=== PATIENT | female | born 1965 | race Caucasian/White ===

== ENCOUNTER → 2021-04-14 12:13 | Outpatient (BNVA) | payer OTHER, SELFPAY | PROVIDERS: Family Provider Nurse Practitioner; PCP Nurse Practitioner Family; Visit Provider Emergency Medicine | DX: E86.0 Dehydration (principal); R09.02 Hypoxemia; U07.1 COVID-19; R11.0 Nausea; R50.9 Fever, unspecified; J18.9 Pneumonia, unspecified organism; J98.11 Atelectasis | CPT/HCPCS: 71046; 80048; 85025 ==

== ENCOUNTER 2021-04-14 15:37 | Inpatient (IN) | payer OTHER, SELFPAY ==
[2021-04-14] VITALS (7 sets, daily range): BP systolic 115–147; BP diastolic 64–78; PULSE 73–87; RESP 17–30; TEMP 36.6–39.4; O2SAT 86–93; BMI 34.6
--- NOTE | 2021-04-14 17:43 | ECG_ITS ---
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 Measurements Intervals [place] Rate: 79 P: 41 DE: 127 QRS: 38 QRSD: 88 T: 27 QT: 359 QTc: 414 Interpretive Statements SINUS RHYTHM LOW QRS VOLTAGE [QRS DEFLECTION < 0.5/1.0 mV IN LIMB/CHEST LEADS] No previous ECG available for comparison Electronically Signed On 04-16-2021 17:24:42 CDT by Reilly Byrne M.D. [id number]
--- NOTE | 2021-04-14 17:57 | PC.NURSE ---
PT JUST ARRIVED TO ED ROOM FROM COVID TRIAGE.
--- NOTE | 2021-04-14 18:14 | PC.NURSE ---
NOTIFIED DR. PELAYO OF PT O2 SAT OF 88% ON 3LNC AND INCREASED O2 SAT TO 90% WITH INCREASE OF OXYGEN TO 4LNC.
[2021-04-14 18:28] LABS: Hematocrit 35.8 % (37.0-47.0); Hemoglobin 11.8 g/dL (11.5-15.3); Lymphocytes # 0.8 10^3/uL (0.8-4.8); Lymphocytes % 25.4 %; Mean Corpuscular Hemoglobin 29.5 pg (28.0-34.0); Mean Corpuscular Volume 89.5 fL (81-99); Monocytes # 0.2 10^3/uL (0.2-0.9); Monocytes % 4.8 %; Neutrophils # 2.18 10^3/uL (1.8-7.7); Neutrophils % 69.2 %; Nucleated Red Blood Cells % 0 %; Platelet Count 113 10^3/cmm (130-400); White Blood Count 3.2 10^3/uL (4.0-10.0)
[2021-04-14 18:38] LABS: Blood Gas Operator Identificat AMH; Blood Gas Sample Type Arterial; Oxygen Device NC
[2021-04-14 18:56] LABS: D Dimer 2.48 ug/mIFEU (0-0.59)
[2021-04-14] MEDS: remdesivir 200 MG in sodium chloride 0.9% (100 ml) 100 ML 100 MG IV (18:57)
[2021-04-14 19:00] LABS: ABG PH Result 7.43 (7.35-7.45); Arterial Blood Gas Hematocrit 37.6 % (37-47); Base Excess ABG -6.2 mmol/L (-2.0-2.0); Blood Gas Allen Test Pos; Blood Gas Sample Site Radial, right; HCO3 ABG 16.6 mmol/L (22-26); PO2 ABG 57.2 mmHg (80.0-100.0)
[2021-04-14 19:02] LABS: Lactic Sepsis W/Reflex 0.8 mmol/L (0.5-2.2); Troponin(5th) Baseline 205 ng/L (0-10)
[2021-04-14 19:03] LABS: Slide Review Slide Review Perform
[2021-04-14 19:10] LABS: NT Pro B Type Natriuretic Pept 551 pg/mL (0-125); Procalcitonin 0.52 ng/mL (0-0.5)
[2021-04-14 19:12] LABS: Influenza A by IFA Negative (Negative); Influenza B by IFA Negative (Negative)
--- NOTE | 2021-04-14 19:15 | PC.NURSE ---
reports received. Pt requesting that son be updated. This nurse attempted to locate and call with no contact at this time.
[2021-04-14 19:23] LABS: Alanine Aminotransferase 50 U/L (0-33); Albumin Level 3.3 g/dL (3.5-5.2); Alkaline Phosphatase 40 IU/L (35-105); Anion Gap 19.5 (5-19); Aspartate Amino Transferase 100 U/L (0-32); Blood Urea Nitrogen 20 mg/dL (6-20); C Reactive Protein 51.3 mg/L (0.0-4.9); Calcium 7.5 mg/dL (8.5-10.5); Carbon Dioxide 14 mmol/L (22-29); Chloride 105 mmol/L (98-107); Globulin 2.9 g/dL (1.3-4.6); Glomerular Filtration Rate 38.8 mL/min (90-130); Glucose 120 mg/dL (65-115); Osmolality Calculated 282 mOsm/kg (285-295); Potassium 4.5 mmol/L (3.5-5.1); Sodium 134 mmol/L (136-145); Total Bilirubin 0.4 mg/dL (0.15-1.2); Total Protein 6.2 g/dL (6.6-8.7)
[2021-04-14 19:36] LABS: Creatine Phosphokinase 2793 U/L (26-192)
--- NOTE | 2021-04-14 20:04 | ED_ITS ---
HPI - COVID General: Chief Complaint: COVID symptoms Stated Complaint: COVID(+) AT [facility]//SOB Time Seen by Provider: 04/14/21 17:49 Source: patient Mode of arrival: ambulatory Limitations: no limitations Triage information: Has fever, cough or shortness of breath . Exposure to COVID + person last 14 days History of Present Illness: HPI Narrative: Symptoms started 9 days ago, got tested 8 days ago and tested positive for COVID-19. She has been gradually getting weaker and having increasing shortness of breath. She went to her primary care provider's office today and notes that she was hypoxic on she may have had pneumonia on chest x-ray so she was sent down to the emergency department to be evaluated. She complains of significant difficulty breathing, she appears to be working to breathe while talking. She has a fever, generalized body aches and feels really weak. COVID Results: No Data to Display Review of Systems General: Reports: 10 or more systems reviewed and unremarkable except in HPI and below [facility] ED PFSH: Medical History (Reviewed 04/14/21 @ 22:30 by Graciela Minor MD, [facility] [place]) Community acquired pneumonia, bilateral COVID-19 Social History (Reviewed 04/14/21 @ 22:30 by Graciela Minor MD, [facility] [place]) Smoking and tobacco status: never smoked Alcohol intake: never Female Reproductive History: Spontaneous abortions: No Physical Exam Const: COMMON NORMALS: no acute distress, average body habitus, patient oriented x3, no limitations, healthy appearing, alert and well nourished HENMT: COMMON NORMALS: normocephalic, atraumatic and moist oral mucous membranes HEAD & SCALP: normocephalic and atraumatic Neck/C-Spine: COMMON NORMALS: no meningeal signs and no JVD Resp: COMMON NORMALS: normal respiratory effort, No retractions, No use of accessory muscles and percussion normal EFFORT & INSPECTION: Yes labored AUSCULTATION: rales PERCUSSION: percussion normal Cardio: COMMON NORMALS: no JVD, regular rate, regular rhythm, S1 normal heart sound present, S2 normal heart sound present, No gallops present (Cardio), No clicks present (Cardio), No murmurs present (Cardio), No rub (Cardio) and Peripheral pulses 2+ throughout RATE: regular rate RHYTHM: regular rhythm HEART SOUNDS: S1 normal heart sound present and S2 normal heart sound present PERIPHERAL PULSES: Peripheral pulses 2+ throughout GI: COMMON NORMALS: Normal to inspection, nondistended, normoactive bowel sounds present, Soft to palpation, non-tender, No hepatosplenomegaly present, no masses and no bruits PALPATION: Yes Soft to palpation and Yes No hepatosplenomegaly present Extremity: COMMON NORMALS: normal to inspection, full ROM, capillary refill normal, no calf tenderness and no pedal edema Neuro: COMMON NORMALS: patient oriented x3 SENSORIUM/ORIENTATION: Yes alert MENINGEAL SIGNS: Yes no meningeal signs Skin: COMMON NORMALS: no rashes or lesions noted, no wounds, turgor normal, no jaundice, no petechiae and no mottling GENERAL SKIN EXAM: no rashes or lesions noted and turgor normal Course Consultations: Consultation #1: Discussed the patient with Dr. Banks, hospitalist and she kindly accepted the patient to her service. Time: 21:55 Vital Signs: Vital signs: Vital Signs Temperature 103 F H 04/14/21 16:27 Pulse Rate 87 04/14/21 21:48 Respiratory Rate 18 04/14/21 21:48 Blood Pressure 115/73 04/14/21 21:48 Pulse Oximetry 92 04/14/21 21:48 MDM - COVID MDM Narrative: Medical decision making narrative: 55-year-old female patient who presents to the emergency department with worsening shortness of breath, generalized body aches, fever. She was diagnosed with COVID-19 8 days ago. On evaluation in the emergency department she was hypoxic with oxygen saturation in the 80s and required oxygen supplementation. Lab work shows she has a significantly elevated baseline troponin but her 2-hour delta is flat. She also has a significantly elevated creatinine kinase. She has elevated liver enzymes. Because she is hypoxic and with troponin elevation she has been admitted to the intensive care unit for further evaluation and management. She was started on remdesivir in the emergency department also given a dose of intravenous dexamethasone. Medical Records: Attestation: I reviewed the patient's medical records. Lab Data: Attestation: I reviewed the patient's lab results. Labs: Lab Results 04/14/21 04/14/21 04/14/21 Range/Units 18:14 18:14 18:14 WBC 3.2 L (4.0-10.0) 10^3/ uL RBC 4.00 L (4.1-5.3) 10^6/u L Hgb 11.8 (11.5-15.3) g/dL Hct 35.8 L (37.0-47.0) % MCV 89.5 (81-99) fL MCH 29.5 (28.0-34.0) pg MCHC 33.0 (30.0-36.0) g/dL RDW 13.0 (12.1-15.1) % Plt Count 113 L (130-400) 10^3/c mm MPV 11.0 H (7.4-10.4) fL Neut % (Auto) 69.2 % Lymph % (Auto) 25.4 % [place] % (Auto) 4.8 % Eos % (Auto) 0.0 % Baso % (Auto) 0.0 % Neut # (Auto) 2.18 (1.8-7.7) 10^3/u L Lymph # (Auto) 0.8 (0.8-4.8) 10^3/u L [place] # (Auto) 0.2 (0.2-0.9) 10^3/u L Eos # (Auto) 0.0 (0.0-0.8) 10^3/u L Baso # (Auto) 0.0 (0.0-0.1) 10^3/u L Nucleated RBC % (a uto) 0 % Nucleated RBCs # 0.0 /100WBC D-Dimer 2.48 H (0-0.59) ug/mIFE U Specimen Type Sample Site ABG pH (7.35-7.45) ABG pCO2 (35-45) mmHg ABG pO2 (80.0-100.0) mmH g ABG HCO3 (22-26) mmol/L ABG Base Excess (-2.0-2.0) mmol/ L Jose Test Hematocrit (37-47) % O2 Delivery Device O2 Liters/Min % FiO2 % Automation Lead ID Sodium 134 L (136-145) mmol/L Potassium 4.5 (3.5-5.1) mmol/L Chloride 105 (98-107) mmol/L Carbon Dioxide 14 L (22-29) mmol/L Anion Gap 19.5 H (5-19) BUN 20 (6-20) mg/dL Creatinine 1.4 H (0.5-0.9) mg/dL GFR Calculation 38.8 L (90-130) mL/min Glucose 120 H (65-115) mg/dL Calculated Osmolal ity 282 L (285-295) mOsm/k g Lactic Acid (0.5-2.2) mmol/L Calcium 7.5 L (8.5-10.5) mg/dL Total Bilirubin 0.4 (0.15-1.2) mg/dL AST 100 H (0-32) U/L ALT 50 H (0-33) U/L Alkaline Phosphata se 40 (35-105) IU/L Creatine Kinase 2793 H* (26-192) U/L Troponin T Baselin e (0-10) ng/L Troponin T 120 Min ammy (0-10) ng/L Delta Troponin T (0-10) ABS# C-Reactive Protein 51.3 H (0.0-4.9) mg/L NT-Pro-B Natriuret Pep 551 H (0-125) pg/mL Total Protein 6.2 L (6.6-8.7) g/dL Albumin 3.3 L (3.5-5.2) g/dL Globulin 2.9 (1.3-4.6) g/dL Procalcitonin 0.52 H (0-0.5) ng/mL Influenza Type A A g (Negative) Influenza Type B A g (Negative) 04/14/21 04/14/21 04/14/21 Range/Units 18:14 18:14 18:27 WBC (4.0-10.0) 10^3/ uL RBC (4.1-5.3) 10^6/u L Hgb (11.5-15.3) g/dL Hct (37.0-47.0) % MCV (81-99) fL MCH (28.0-34.0) pg MCHC (30.0-36.0) g/dL RDW (12.1-15.1) % Plt Count (130-400) 10^3/c mm MPV (7.4-10.4) fL Neut % (Auto) % Lymph % (Auto) % [place] % (Auto) % Eos % (Auto) % Baso % (Auto) % Neut # (Auto) (1.8-7.7) 10^3/u L Lymph # (Auto) (0.8-4.8) 10^3/u L [place] # (Auto) (0.2-0.9) 10^3/u L Eos # (Auto) (0.0-0.8) 10^3/u L Baso # (Auto) (0.0-0.1) 10^3/u L Nucleated RBC % (a uto) % Nucleated RBCs # /100WBC D-Dimer (0-0.59) ug/mIFE U Specimen Type Arterial Sample Site Radial, right ABG pH 7.43 (7.35-7.45) ABG pCO2 25.0 L (35-45) mmHg ABG pO2 57.2 L (80.0-100.0) mmH g ABG HCO3 16.6 L (22-26) mmol/L ABG Base Excess -6.2 L (-2.0-2.0) mmol/ L Jose Test Pos Hematocrit 37.6 (37-47) % O2 Delivery Device Nc O2 Liters/Min 4.0 % FiO2 36.0 % Automation Lead ID Amh Sodium (136-145) mmol/L Potassium (3.5-5.1) mmol/L Chloride (98-107) mmol/L Carbon Dioxide (22-29) mmol/L Anion Gap (5-19) BUN (6-20) mg/dL Creatinine (0.5-0.9) mg/dL GFR Calculation (90-130) mL/min Glucose (65-115) mg/dL Calculated Osmolal ity (285-295) mOsm/k g Lactic Acid 0.8 (0.5-2.2) mmol/L Calcium (8.5-10.5) mg/dL Total Bilirubin (0.15-1.2) mg/dL AST (0-32) U/L ALT (0-33) U/L Alkaline Phosphata se (35-105) IU/L Creatine Kinase (26-192) U/L Troponin T Baselin e 205 H* (0-10) ng/L Troponin T 120 Min ammy (0-10) ng/L Delta Troponin T (0-10) ABS# C-Reactive Protein (0.0-4.9) mg/L NT-Pro-B Natriuret Pep (0-125) pg/mL Total Protein (6.6-8.7) g/dL Albumin (3.5-5.2) g/dL Globulin (1.3-4.6) g/dL Procalcitonin (0-0.5) ng/mL Influenza Type A A g (Negative) Influenza Type B A g (Negative) 04/14/21 04/14/21 Range/Units 18:35 20:15 WBC (4.0-10.0) 10^3/ uL RBC (4.1-5.3) 10^6/u L Hgb (11.5-15.3) g/dL Hct (37.0-47.0) % MCV (81-99) fL MCH (28.0-34.0) pg MCHC (30.0-36.0) g/dL RDW (12.1-15.1) % Plt Count (130-400) 10^3/c mm MPV (7.4-10.4) fL Neut % (Auto) % Lymph % (Auto) % [place] % (Auto) % Eos % (Auto) % Baso % (Auto) % Neut # (Auto) (1.8-7.7) 10^3/u L Lymph # (Auto) (0.8-4.8) 10^3/u L [place] # (Auto) (0.2-0.9) 10^3/u L Eos # (Auto) (0.0-0.8) 10^3/u L Baso # (Auto) (0.0-0.1) 10^3/u L Nucleated RBC % (a uto) % Nucleated RBCs # /100WBC D-Dimer (0-0.59) ug/mIFE U Specimen Type Sample Site ABG pH (7.35-7.45) ABG pCO2 (35-45) mmHg ABG pO2 (80.0-100.0) mmH g ABG HCO3 (22-26) mmol/L ABG Base Excess (-2.0-2.0) mmol/ L Jose Test Hematocrit (37-47) % O2 Delivery Device O2 Liters/Min % FiO2 % Automation Lead ID Sodium (136-145) mmol/L Potassium (3.5-5.1) mmol/L Chloride (98-107) mmol/L Carbon Dioxide (22-29) mmol/L Anion Gap (5-19) BUN (6-20) mg/dL Creatinine (0.5-0.9) mg/dL GFR Calculation (90-130) mL/min Glucose (65-115) mg/dL Calculated Osmolal ity (285-295) mOsm/k g Lactic Acid (0.5-2.2) mmol/L Calcium (8.5-10.5) mg/dL Total Bilirubin (0.15-1.2) mg/dL AST (0-32) U/L ALT (0-33) U/L Alkaline Phosphata se (35-105) IU/L Creatine Kinase (26-192) U/L Troponin T Baselin e (0-10) ng/L Troponin T 120 Min ammy 200.6 H (0-10) ng/L Delta Troponin T -4.4 L (0-10) ABS# C-Reactive Protein (0.0-4.9) mg/L NT-Pro-B Natriuret Pep (0-125) pg/mL Total Protein (6.6-8.7) g/dL Albumin (3.5-5.2) g/dL Globulin (1.3-4.6) g/dL Procalcitonin (0-0.5) ng/mL Influenza Type A A g Negative (Negative) Influenza Type B A g Negative (Negative) Imaging Data: CTA Chest: Attestation: I personally reviewed and interpreted this imaging study as follows: Radiologist's impression: [address] [id number] Scan ReportSigned Patient: Debbie Aparicio #: [id number]: 1965Acct#:[id number]/Sex: 55 / FADM Date: 04/14/21Loc: ERRoom/Bed:Attending Dr: Ordering Provider/Ordering MD: Graciela Minor MD, [facility] [place] Date of Service: 04/14/21 Procedure(s): CT angio chest PE protcl [id number] Accession Number(s): [id number] Report Number: [id number] PROCEDURE INFORMATION: Exam: CTA Chest With Contrast Exam date and time: 04/14/2021 9:04 PM Age: 55 years old Clinical indication: Abnormal findings; Abnormal diagnostic tests; Elevated d-dimer; Cough and shortness of breath; Patient HX: Cough/sob/elevated ddimer/covid+. 20g in top of left hand with resistant flushing. Reduced injection rate. Best scan obtained. ; Additional info: Covid, hypoxia, elevated d-dimer TECHNIQUE: Imaging protocol: Computed tomographic angiography of the chest with contrast. 3D rendering (Not supervised by radiologist): MIP and/or 3D reconstructed images were created by the technologist. Total images: 836 Radiation optimization: All CT scans at this facility use at least one of these dose optimization techniques: automated exposure control; mA and/or kV adjustment per patient size (includes targeted exams where dose is matched to clinical indication); or iterative reconstruction. Contrast material: VISI 320; Contrast volume: 64 ml; Contrast route: INTRAVENOUS (IV); COMPARISON: CR (CHEST, ) 04/14/2021 8:41 PM RADIATION DOSE METRICS: Total DLP (mGy-cm): 887.26 FINDINGS: Pulmonary arteries: No visible evidence of pulmonary embolism/pulmonary arterial thrombus. Aorta: The thoracic aorta is nonaneurysmal. No visible intimal flap or dissection. Lungs: Bilateral, predominantly peripheral, patches of ground-glass interstitial lung disease opacification with early consolidation in the bilateral lower lobes consistent with active interstitial pneumonitis/pneumonia. Overall constellation of findings would be consistent with Covid-19 pneumonitis/pneumonia. Pleural spaces: Unremarkable. No pneumothorax. No pleural effusion. Heart: No cardiomegaly. No visible pericardial effusion. Mild coronary artery disease. Mediastinal space: Small hiatal hernia. Lymph nodes: Marginally prominent mediastinal and hilar lymph nodes most likely reactive in nature. Bones/joints: No visible active or acute osseous pathology. Mild degenerative disease and degenerative disc disease of the spine. Soft tissues: Unremarkable. CT/CT angio chest PE protcl [id number] IMPRESSION: 1. No visible evidence of pulmonary embolism/pulmonary arterial thrombus. 2. Bilateral pneumonitis/pneumonia consistent with Covid-19 pneumonitis/pneumonia. 3. Marginally prominent mediastinal hilar lymph nodes most likely reactive in nature. Radiation Dose CTDIVOL = (mGy): DLP = 887.26 (mGy-cm) Dictated By:Chari De Guzman By:Chari De Guzman Date/Time:04/14/212206DD/ 04 CXR: Attestation: I personally reviewed and interpreted this imaging study as follows: Radiologist's impression: [address] [id number] ReportSigned Patient: Debbie Aparicio #: [id number]: 1965Acct#:[id number]/Sex: 55 / FADM Date: 04/14/21Loc: ERRoom/Bed:Attending Dr: Ordering Provider/Ordering MD: Graciela Minor MD, [facility] [place] Date of Service: 04/14/21 Procedure(s): XR chest 1V portable [id number] Accession Number(s): [id number] Report Number: [id number] PROCEDURE INFORMATION: Exam: XR Chest Exam date and time: 04/14/2021 8:28 PM Age: 55 years old Clinical indication: Shortness of breath; Additional info: SOB, covid+ TECHNIQUE: Imaging protocol: XR of the chest. Views: 1 view. Total images: 1 COMPARISON: CR XR chest 2V* [id number] 04/14/2021 2:05 PM FINDINGS: Lungs: When compensation is made for change in technique no apparent significant interval change in the bilateral patchy ground-glass interstitial lung disease and early consolidated alveolar airspace disease of pneumonitis/pneumonia consistent with the diagnosis of Covid-19 pneumonitis/pneumonia. Pleural spaces: Unremarkable. No pleural effusion. No pneumothorax. Heart/Mediastinum: Cardiac structures in configuration stable. Bones/joints: Unremarkable. XR/XR chest 1V portable [id number] IMPRESSION: No significant interval change cardiopulmonary status radiographically. Dictated By:Chari De Guzman By:Chari De Guzman Date/Time:04/14/212157DD/ 55 EKG Data: EKG 1: Attestation: I personally reviewed and interpreted this EKG as follows: EKG interpretation date: 04/14/21 EKG interpretation time: 18:13 Prior EKG tracings: not available for review Interpretation: Sinus rhythm. Heart rate [address] changes. EKG 2: Attestation: I personally reviewed and interpreted this EKG as follows: EKG interpretation date: 04/14/21 EKG interpretation time: 21:38 Prior EKG tracings: available for review Interpretation: Sinus rhythm. Heart rate [address] changes. No significant change from earlier today. COVID Results: No Data to Display Critical Care Time Critical Care Time: Critical Care Time: Yes Total Critical Care Time: 60 Attestation: This case had a high probability of a clinically significant, sudden, or life threatening deterioration of this patient's condition which required my full and direct attention, intervention and personal management. Discharge Plan Discharge Patient Disposition: Admitted As Inpatient Clinical Impression: Pneumonia due to 2019 novel coronavirus, Rhabdomyolysis due to COVID-19, Elevated troponin Acute respiratory failure Qualifiers: Respiratory failure complication: hypoxia Qualified Code(s): J96.01 - Acute respiratory failure with hypoxia Condition: Stable Coding Level of Care Code ED Inspector Plating for Tate Barragan
--- NOTE | 2021-04-14 20:28 | XRR_ITS ---
PROCEDURE INFORMATION: Exam: XR Chest Exam date and time: 04/14/2021 8:28 PM Age: 55 years old Clinical indication: Shortness of breath; Additional info: SOB, covid+ TECHNIQUE: Imaging protocol: XR of the chest. Views: 1 view. Total images: 1 COMPARISON: CR XR chest 2V* [id number] 04/14/2021 2:05 PM FINDINGS: Lungs: When compensation is made for change in technique no apparent significant interval change in the bilateral patchy ground-glass interstitial lung disease and early consolidated alveolar airspace disease of pneumonitis/pneumonia consistent with the diagnosis of Covid-19 pneumonitis/pneumonia. Pleural spaces: Unremarkable. No pleural effusion. No pneumothorax. Heart/Mediastinum: Cardiac structures in configuration stable. Bones/joints: Unremarkable. XR/XR chest 1V portable [id number] IMPRESSION: No significant interval change cardiopulmonary status radiographically.
[2021-04-14 20:50] LABS: Troponin 5 2HR Delta -4.4 ABS# (0-10)
[2021-04-14 21:01] LABS: Troponin 5 2HR 200.6 ng/L (0-10)
--- NOTE | 2021-04-14 21:04 | CTR_ITS ---
PROCEDURE INFORMATION: Exam: CTA Chest With Contrast Exam date and time: 04/14/2021 9:04 PM Age: 55 years old Clinical indication: Abnormal findings; Abnormal diagnostic tests; Elevated d-dimer; Cough and shortness of breath; Patient HX: Cough/sob/elevated ddimer/covid+. 20g in top of left hand with resistant flushing. Reduced injection rate. Best scan obtained. ; Additional info: Covid, hypoxia, elevated d-dimer TECHNIQUE: Imaging protocol: Computed tomographic angiography of the chest with contrast. 3D rendering (Not supervised by radiologist): MIP and/or 3D reconstructed images were created by the technologist. Total images: 836 Radiation optimization: All CT scans at this facility use at least one of these dose optimization techniques: automated exposure control; mA and/or kV adjustment per patient size (includes targeted exams where dose is matched to clinical indication); or iterative reconstruction. Contrast material: VISI 320; Contrast volume: 64 ml; Contrast route: INTRAVENOUS (IV); COMPARISON: CR (CHEST, ) 04/14/2021 8:41 PM RADIATION DOSE METRICS: Total DLP (mGy-cm): 887.26 FINDINGS: Pulmonary arteries: No visible evidence of pulmonary embolism/pulmonary arterial thrombus. Aorta: The thoracic aorta is nonaneurysmal. No visible intimal flap or dissection. Lungs: Bilateral, predominantly peripheral, patches of ground-glass interstitial lung disease opacification with early consolidation in the bilateral lower lobes consistent with active interstitial pneumonitis/pneumonia. Overall constellation of findings would be consistent with Covid-19 pneumonitis/pneumonia. Pleural spaces: Unremarkable. No pneumothorax. No pleural effusion. Heart: No cardiomegaly. No visible pericardial effusion. Mild coronary artery disease. Mediastinal space: Small hiatal hernia. Lymph nodes: Marginally prominent mediastinal and hilar lymph nodes most likely reactive in nature. Bones/joints: No visible active or acute osseous pathology. Mild degenerative disease and degenerative disc disease of the spine. Soft tissues: Unremarkable. CT/CT angio chest PE protcl [id number] IMPRESSION: 1. No visible evidence of pulmonary embolism/pulmonary arterial thrombus. 2. Bilateral pneumonitis/pneumonia consistent with Covid-19 pneumonitis/pneumonia. 3. Marginally prominent mediastinal hilar lymph nodes most likely reactive in nature. Radiation Dose CTDIVOL = (mGy): DLP = 887.26 (mGy-cm)
[2021-04-14] MEDS: sodium chloride 0.9% 1,000 ML 999 ML IV (21:17)
[2021-04-14] MEDS: dexamethasone 4 mg/mL INJ 6 MG IVP (21:18)
[2021-04-14] MEDS: iodixanol 320 mg/mL 100mL Btl IV (21:33)
--- NOTE | 2021-04-14 21:43 | ECG_ITS ---
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 Measurements Intervals [place] Rate: 80 P: 53 KS: 129 QRS: 34 QRSD: 91 T: 42 QT: 373 QTc: 431 Interpretive Statements SINUS RHYTHM LOW QRS VOLTAGE IN PRECORDIAL LEADS [QRS DEFLECTION < 1.0 mV IN CHEST LEADS] Compared to ECG 04/14/2021 18:13:33 No significant changes Electronically Signed On 04-16-2021 17:24:25 CDT by Reilly Byrne M.D. [id number]
--- NOTE | 2021-04-14 23:30 | P.HP_ITS ---
Providers/Chief Complaint Admitting Physician: Minna John MD Chief Complaint: COVID(+) AT [facility]//SOB History of Present Illness Amarilys Aparicio is a 55 year old female who presented to the emergency room with chief complaint of increasing difficulty breathing in the setting of known Covid positivity. She began to have symptoms around April 06. She has some general malaise and cough, fever after a few days she decided to get tested and was found to be Covid positive. She was seen in the emergency room in [place] because of increasing difficulty breathing and malaise but discharged with pulse oximeter and recommended to have supportive care. Saturations at the time were okay. She began to have nausea and diarrhea, increasing fatigue, persistent fevers and increasing shortness of breath. She was seen at the clinic in [place] on April 13. Saturations were 90% on room air. She declined ER visit or consideration for admission. She received some IV fluids and Zofran in the office and was given prescription for antibiotics, Zofran and order was placed for oxygen therapy. She was unable to keep medications down and was seen again at the clinic on the . There she received Phenergan, Solu-Medrol and Rocephin IM as well as a breathing treatment. After discussion she did agree to come to the emergency room. Here she was evaluated. She was requiring up to 6 L of oxygen. She received IV fluids. Multiple laboratory studies were abnormal as will be described below. She was started on remdesivir and is being admitted for further care. She did not have Covid previously and did not receive Covid vaccination. Her is also Covid positive at the moment. Review of Systems Const: Reports: fever(s), chills, body aches, change in appetite, fatigue and malaise ENMT: Reports: dry mouth, nasal congestion and other (Denies loss of taste or smell); Denies: throat pain Card: Reports: chest pain (Primarily with coughing), palpitations, lightheadedness and dyspnea on exertion; Denies: edema or acrocyanosis Resp: Reports: dyspnea, productive cough, non-productive cough, wheezing and chest congestion; Denies: pain on inspiration or hemoptysis GI: Reports: abdominal pain, nausea, vomiting and diarrhea : Denies: difficulty voiding Musc: Reports: muscle cramps and muscle weakness; Denies: joint redness or joint warmth Skin/Breast: Denies: rash or sores Neuro: Reports: headache(s) and weakness in extremities (General rather than focal); Denies: numbness in extremities Psych: Denies: anxiety Medications/Allergies Home Medications Medication Instructions Recorded Confirmed Last Taken Type albuterol sulfate 90 mcg/actuation 2 puff INHALATION QID 04/13/21 04/14/21 Unknown History aerosol inhaler levothyroxine 175 mcg capsule 175 mcg PO DAILY 04/13/21 04/14/21 Unknown History miscellaneous medical supply See Rx Instructions MISCELLANEOUS 04/13/21 04/14/21 Unknown Rx .COMPLEX 30 Days #1 ea ondansetron HCl 4 mg tablet 4 mg PO Q8H PRN #30 tab 04/13/21 04/14/21 04/14/21 R x pantoprazole 40 mg tablet,delayed 40 mg PO DAILY 04/13/21 04/14/21 Unknown History release tizanidine 2 mg capsule 2 mg PO BID PRN 04/13/21 04/14/21 Unknown History ascorbic acid (vitamin C) [Vitamin 250 mg PO DAILY 04/14/21 04/14/21 Unknown History C] azithromycin See Rx Instructions .ROUTE .COMPLEX 04/14/21 04/14/21 04/14/21 History cholecalciferol (vitamin D3) 25 mcg PO DAILY 04/14/21 04/14/21 Unknown History [Vitamin D3] zinc 50 mg PO DAILY 04/14/21 04/14/21 Unknown History Allergies Allergy/AdvReac Type Severity Reaction Status Date / Time codeine Allergy Unknown UNKNOWN Verified 04/13/21 14:14 PFSH Acute PFSH: Medical History (Updated 04/15/21 @ 03:04 by Minna John MD) Acquired hypothyroidism COVID-19 (~04/2021) History of breast cancer Managed with lumpectomy, gets regular mammograms Surgical History (Updated 04/15/21 @ 02:42 by Minna John MD) History of D&C History of lumpectomy Family History (Updated 04/15/21 @ 02:43 by Minna John MD) Mother Breast cancer Social History (Updated 04/15/21 @ 02:43 by Minna John MD) Smoking and tobacco status: never smoked Alcohol intake: never Substance/Drug Use: never Household members: spouse Marital status: Female Reproductive History: Spontaneous abortions: Yes (1 miscarriage) Vitals/I&O/Wt Last Vital Signs Temp 98 F 04/14/21 23:02 Pulse 82 04/14/21 23:02 Resp 24 H 04/14/21 23:02 BP 124/64 04/14/21 23:02 Pulse Ox 93 04/14/21 23:02 04/14/21 04/14/21 04/15/21 14:59 22:59 06:59 Intake Total 100 / 100 Balance 100 / 100 Weight last 48 hrs Weight 94.347 kg Physical Exam Narrative: EXAM NARRATIVE: Constitutional: Awake and alert, cooperative, able answer questions HEENT: Normocephalic, atraumatic, pupils are equally reactive, conjunctive are slightly injected, nasopharynx is clear, oropharynx is dry mucous membranes Neck: Supple Respiratory: Scattered wheezes and crackles, no accessory muscle use noted, chest expansion is equal bilaterally Cardiovascular: Regular rhythm, no murmurs, no acrocyanosis Abdomen: Soft, mild tenderness in epigastric area, positive bowel sounds, nondistended Extremities: No pitting edema or acute synovitis Skin: Dry, no rashes or petechiae Neuro: Speech clear, face symmetric, moves all extremities, handgrip equal Psych: Normal affect Data : 04/14/21 18:14 04/14/21 18:14 Micro: Microbiology 04/14/21 20:15 Blood Culture - Preliminary Blood SPECIMEN COLLECTED 04/14/21 18:14 Blood Culture - Preliminary Blood SPECIMEN COLLECTED Other data: Laboratory Results WBC 3.2 10^3/uL (4.0-10.0) L 04/14/21 18:14 RBC 4.00 10^6/uL (4.1-5.3) L 04/14/21 18:14 Hgb 11.8 g/dL (11.5-15.3) 04/14/21 18:14 Hct 35.8 % (37.0-47.0) L 04/14/21 18:14 MCV 89.5 fL (81-99) D 04/14/21 18:14 MCH 29.5 pg (28.0-34.0) 04/14/21 18:14 MCHC 33.0 g/dL (30.0-36.0) D 04/14/21 18:14 RDW 13.0 % (12.1-15.1) 04/14/21 18:14 Plt Count 113 10^3/cmm (130-400) L 04/14/21 18:14 MPV 11.0 fL (7.4-10.4) H 04/14/21 18:14 Neut % (Auto) 69.2 % 04/14/21 18:14 Lymph % (Auto) 25.4 % 04/14/21 18:14 [place] % (Auto) 4.8 % 04/14/21 18:14 Eos % (Auto) 0.0 % 04/14/21 18:14 Baso % (Auto) 0.0 % 04/14/21 18:14 Neut # (Auto) 2.18 10^3/uL (1.8-7.7) 04/14/21 18:14 Lymph # (Auto) 0.8 10^3/uL (0.8-4.8) 04/14/21 18:14 [place] # (Auto) 0.2 10^3/uL (0.2-0.9) 04/14/21 18:14 Eos # (Auto) 0.0 10^3/uL (0.0-0.8) 04/14/21 18:14 Baso # (Auto) 0.0 10^3/uL (0.0-0.1) 04/14/21 18:14 Nucleated RBC % (auto) 0 % 04/14/21 18:14 Nucleated RBCs # 0.0 /100WBC 04/14/21 18:14 D-Dimer 2.48 ug/mIFEU (0-0.59) H 04/14/21 18:14 Specimen Type Arterial 04/14/21 18:27 Sample Site Radial, right 04/14/21 18:27 ABG pH 7.43 (7.35-7.45) 04/14/21 18:27 ABG pCO2 25.0 mmHg (35-45) L 04/14/21 18:27 ABG pO2 57.2 mmHg (80.0-100.0) L 04/14/21 18: ABG HCO3 16.6 mmol/L (22-26) L 04/14/21 18:27 ABG Base Excess -6.2 mmol/L (-2.0-2.0) L 04/14/21 18:27 Jose Test Pos 04/14/21 18:27 Hematocrit 37.6 % (37-47) 04/14/21 18:27 O2 Delivery Device Nc 04/14/21 18:27 O2 Liters/Min 4.0 % 04/14/21 18:27 FiO2 36.0 % 04/14/21 18:27 Furniture Mover Driver ID Amh 04/14/21 18:27 Sodium 134 mmol/L (136-145) L 04/14/21 18:14 Potassium 4.5 mmol/L (3.5-5.1) 04/14/21 18:14 Chloride 105 mmol/L (98-107) 04/14/21 18:14 Carbon Dioxide 14 mmol/L (22-29) L 04/14/21 18:14 Anion Gap 19.5 (5-19) H 04/14/21 18:14 BUN 20 mg/dL (6-20) 04/14/21 18:14 Creatinine 1.4 mg/dL (0.5-0.9) H 04/14/21 18:14 GFR Calculation 38.8 mL/min (90-130) L 04/14/21 18:14 Glucose 120 mg/dL (65-115) H 04/14/21 18:14 Calculated Osmolality 282 mOsm/kg (285-295) L 04/14/21 18:14 Lactic Acid 0.8 mmol/L (0.5-2.2) 04/14/21 18:14 Calcium 7.5 mg/dL (8.5-10.5) L 04/14/21 18:14 Total Bilirubin 0.4 mg/dL (0.15-1.2) 04/14/21 18:14 AST 100 U/L (0-32) H 04/14/21 18:14 ALT 50 U/L (0-33) H 04/14/21 18:14 Alkaline Phosphatase 40 IU/L (35-105) 04/14/21 18:14 Creatine Kinase 2793 U/L (26-192) H* 04/14/21 18:14 Troponin T Baseline 205 ng/L (0-10) H* 04/14/21 18:14 Troponin T 120 Minute 200.6 ng/L (0-10) H 04/14/21 20:15 Delta Troponin T -4.4 ABS# (0-10) L 04/14/21 20:15 Troponin T Hi Sens 6Hr 138.8 ng/L (0-10) H 04/15/21 00:18 Troponin T Hi Sens 6Hr Delta -66.2 ng/L (0-12) L 04/15/21 00:18 C-Reactive Protein 51.3 mg/L (0.0-4.9) H 04/14/21 18:14 NT-Pro-B Natriuret Pep 551 pg/mL (0-125) H 04/14/21 18:14 Total Protein 6.2 g/dL (6.6-8.7) L 04/14/21 18:14 Albumin 3.3 g/dL (3.5-5.2) L 04/14/21 18:14 Globulin 2.9 g/dL (1.3-4.6) 04/14/21 18:14 Procalcitonin 0.52 ng/mL (0-0.5) H 04/14/21 18:14 Influenza Type A Ag Negative (Negative) 04/14/21 18:35 Influenza Type B Ag Negative (Negative) 04/14/21 18:35 Impressions Chest X-Ray 04/14/21 20:28 IMPRESSION: No significant interval change cardiopulmonary status radiographically. Chest CTA 04/14/21 21:04 IMPRESSION: 1. No visible evidence of pulmonary embolism/pulmonary arterial thrombus. 2. Bilateral pneumonitis/pneumonia consistent with Covid-19 pneumonitis/pneumonia. 3. Marginally prominent mediastinal hilar lymph nodes most likely reactive in nature. Radiation Dose CTDIVOL = (mGy): DLP = 887.26 (mGy-cm) A&P Assessment and plan (1) Acute respiratory failure: Necessitating oxygen therapy. Secondary to Covid plus possible secondary bacterial infection. CTA was negative for PE. Status: Acute Qualifiers: Respiratory failure complication: hypoxia Qualified Code(s): J96.01 - Acute respiratory failure with hypoxia (2) Pneumonia due to 2019 novel coronavirus: Associated with leukopenia, thrombocytopenia, elevated D-dimer, hypoxemia, elevated troponin, elevated BNP, elevated CRP elevated procalcitonin suggestive of secondary bacterial infection although level is just outside of normal range, some elevation in transaminases, nausea, vomiting, dehydration, headache, mal aise, respiratory failure with hypoxemia. Status: Acute (3) Elevated troponin: Without significant delta, also with elevated BNP Status: Acute (4) Rhabdomyolysis due to COVID-19: Status: Acute Additional A&P Information Mild elevation in blood sugar, probably related to steroids received over the last couple of days, no history of diabetes Inpatient admission ICU care initially Continue oxygen therapy Remdesivir Dexamethasone Rocephin and azithromycin for coverage of possible secondary pneumonia Blood cultures were collected Send bacterial antigens Albuterol and Advair Lovenox and SCDs Low rate IV fluids with bicarbonate to alkalinize the urine Recheck CK Monitor urine output closely Serial laboratory studies Check urinalysis Will provide vitamin D, vitamin C, zinc Continue home levothyroxine PPI Monitor blood sugars while on steroids Supportive care otherwise Discussed with patient that she had multiple laboratory abnormalities consistent with severe Covid in addition to low oxygen levels. Reviewed current treatment plans and that there were other medications we might consider adding. Overall she looks better at the moment that I would expect with the laboratory abnormalities noted, though he is requiring 6 L of oxygen therapy Currently anticipate disposition home with family though will ultimately depend on clinical course Full code Attestations Medical Necessity Statement*: Anticipated stay greater than two midnights in this patient with Covid and multiple endorgan effects from it requiring oxygen therapy, close monitoring and management as indicated. 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
[2021-04-15] VITALS (53 sets, daily range): BP systolic 107–175; BP diastolic 69–104; PULSE 66–95; RESP 18–35; TEMP 35.7–37.2; O2SAT 88–99
[2021-04-15 01:01] LABS: Troponin 5 6HR 138.8 ng/L (0-10)
[2021-04-15] MEDS: enoxaparin 40 mg/0.4 mL Syringe SUBCUT (03:07)
[2021-04-15] MEDS: cefTRIAXone 1,000 MG in sodium chloride 0.9% (plus) 50 ML 100 MG IV (03:07)
[2021-04-15] MEDS: dexamethasone 4 mg/mL INJ 6 MG IVP (03:07)
[2021-04-15] MEDS: azithromycin 500 MG in sodium chloride 0.9% 250 ML 250 MG IV (03:08)
--- NOTE | 2021-04-15 03:36 | PC.NURSE ---
0238 Pt arrived per stretcher. Pt moved over to bed under her own power. Connected to ICU monitors. O2@6LNC. VSS. Assessment completed. Denies any pain. Lungs CTA, diminished in bases. Pt up to BSC with standby assist. Pt ambulated back to bed without assist. Tolerated fair. No desat noted. Will monitor.
[2021-04-15 03:54] LABS: Ferritin 549 ng/mL (15-150)
[2021-04-15 05:10] LABS: Hemoglobin 11.7 g/dL (11.5-15.3); Lymphocytes # 0.9 10^3/uL (0.8-4.8); Mean Corpuscular HGB Conc 32.5 g/dL (30.0-36.0); Mean Corpuscular Hemoglobin 29.4 pg (28.0-34.0); Mean Corpuscular Volume 90.5 fL (81-99); Mean Platelet Volume 11.2 fL (7.4-10.4); Monocytes # 0.2 10^3/uL (0.2-0.9); Monocytes % 7.6 %; Neutrophils # 1.65 10^3/uL (1.8-7.7); Nucleated Red Blood Cells % 0 %; Platelet Count 113 10^3/cmm (130-400); Red Blood Count 3.98 10^6/uL (4.1-5.3); Red Cell Distribution Width 12.9 % (12.1-15.1); White Blood Count 2.8 10^3/uL (4.0-10.0)
[2021-04-15 05:19] LABS: INR 1.29 (0.8-1.2)
[2021-04-15 05:20] LABS: Fibrinogen 457 mg/dL (174-498); Partial Thromboplastin Time 41.8 SECONDS (23.9-36.7)
[2021-04-15 05:33] LABS: Slide Review Slide Review Perform
[2021-04-15 05:37] LABS: Procalcitonin 0.43 ng/mL (0-0.5)
[2021-04-15 05:51] LABS: Alanine Aminotransferase 48 U/L (0-33); Albumin Level 2.9 g/dL (3.5-5.2); Alkaline Phosphatase 37 IU/L (35-105); Anion Gap 15.5 (5-19); Aspartate Amino Transferase 79 U/L (0-32); Blood Urea Nitrogen 21 mg/dL (6-20); C Reactive Protein 52.3 mg/L (0.0-4.9); Calcium 7.2 mg/dL (8.5-10.5); Carbon Dioxide 18 mmol/L (22-29); Chloride 107 mmol/L (98-107); Globulin 2.8 g/dL (1.3-4.6); Glomerular Filtration Rate 46.3 mL/min (90-130); Glucose 192 mg/dL (65-115); Osmolality Calculated 290 mOsm/kg (285-295); Phosphorus 2.4 mg/dL (2.5-4.5); Potassium 4.5 mmol/L (3.5-5.1); Sodium 136 mmol/L (136-145); Total Bilirubin 0.3 mg/dL (0.15-1.2); Total Protein 5.7 g/dL (6.6-8.7)
[2021-04-15 06:06] LABS: Creatine Phosphokinase 2245 U/L (26-192)
--- NOTE | 2021-04-15 06:28 | PC.NURSE ---
Pt resting quietly in bed, O2@6LNC. VSS. No s/s of SOB or pain.
[2021-04-15] MEDS: ascorbic acid 500 mg Tablet PO ×2 (08:33→18:11)
[2021-04-15] MEDS: zinc gluconate 50 mg Tablet PO (08:33)
[2021-04-15] MEDS: levothyroxine 175 mcg Tablet PO (08:33)
[2021-04-15] MEDS: pantoprazole DR 40 mg Tablet PO (08:33)
[2021-04-15] MEDS: albuterol 8 gm MDI 1 PUFF INHALATION ×3 (08:43→21:47)
[2021-04-15] MEDS: cholecalciferol (vitamin D3) 1,000 unit Tablet 2000 UNIT PO (10:00)
[2021-04-15 10:30] LABS: Specific Gravity, Urine 1.015 (1.005-1.030); Urine Appearance Clear (CLEAR); Urine Color Yellow (Yellow); pH Urine 5 (5-7)
[2021-04-15 10:31] LABS: Add Urine Culture? No; Add Urine Microscopic? YES; Bacteria Urine 1+ /hpf; Bilirubin Urine Neg (Negative); Blood Urine 3+ (Negative); Glucose Urine UA Norm (Normal); Ketones Urine Negative (Negative); Leukocyte Esterase Urine Negative (Negative); Mucus Urine TRACE /hpf; Nitrate Urine Negative (Negative); Protein Urine Trace (Negative); RBC Urine 0-4 /hpf (0-2); Urobilinogen Urine Norm (Negative)
--- NOTE | 2021-04-15 15:27 | PM.PN ---
Vitals/I&O/Wt Last Vital Signs Temp 96.3 F L 04/15/21 08:00 Pulse 88 04/15/21 15:00 Resp 28 H 04/15/21 15:00 BP 149/86 04/15/21 15:00 Pulse Ox 93 04/15/21 15:00 04/15/21 04/15/21 04/15/21 06:59 14:59 22:59 Intake Total 300 / 400 380 / 380 Output Total 200 / 200 400 / 400 Balance 100 / 200 -20 / -20 Weight last 48 hrs Weight 97.976 kg Weight 94.347 kg Data : 04/15/21 04:55 04/15/21 04:55 Micro: Microbiology 04/15/21 09:50 Bacterial Antigens - Final Urine,Clean Catch 04/14/21 20:15 Blood Culture - Preliminary Blood SPECIMEN COLLECTED 04/14/21 18:14 Blood Culture - Preliminary Blood SPECIMEN COLLECTED A&P Assessment and plan (1) Acute respiratory failure: Acute hypoxic respiratory failure secondary 2/2 Covid PNA with possible superadded bacterial PNA. Currently on COVID Protocol. C.T.A Chest:No P/E : Bilateral, predominantly peripheral, patches of ground-glass interstitial lung disease opacification with early consolidation in the bilateral lower lobes consistent with active interstitial pneumonitis/pneumonia. D-dimer : ESR: CRP: Ferittin: Fibrinigen: Procalcitonin : 0.52 Blood culture :GPC 10/10 Bottles Follow Repeat Blood Culture Urine culture Sputum culture MRSA PCR: Remdesivir 5 Day course Dexamethasone 6 mg I.V Daily Lovenox 40 mg sc q12 daily VANcomycin Ceftriaxone 1 gm q24 h Daily Advair inhalation Ascorbic acid po Zinc gluconate po Nebs Status: Acute Qualifiers: Respiratory failure complication: hypoxia Qualified Code(s): J96.01 - Acute respiratory failure with hypoxia (2) Pneumonia due to 2019 novel coronavirus: Associated with leukopenia, thrombocytopenia, elevated D-dimer, hypoxemia, elevated troponin, elevated BNP, elevated CRP elevated procalcitonin suggestive of secondary bacterial infection although level is just outside of normal range, some elevation in transaminases, nausea, vomiting, dehydration, headache, malaise, respiratory failure with hypoxemia. Status: Acute (3) JIMI (acute kidney injury): Likely Prerenal 2/2 Dehydration Baseline SCR :Unkown Admission SCR : 1.5 Monitor BMP Status: Acute (4) Rhabdomyolysis due to COVID-19: Status: Acute (5) Elevated troponin: Without significant delta, also with elevated BNP Status: Acute (6) Leukopenia: Status: Acute (7) Thrombocytopenia: Status: Acute Additional A&P Information Mild elevation in blood sugar, probably related to steroids received over the last couple of days, no history of diabetes Inpatient admission ICU care initially Continue oxygen therapy Remdesivir Dexamethasone Rocephin and azithromycin for coverage of possible secondary pneumonia Blood cultures were collected Send bacterial antigens Albuterol and Advair Lovenox and SCDs Low rate IV fluids with bicarbonate to alkalinize the urine Recheck CK Monitor urine output closely Serial laboratory studies Check urinalysis Will provide vitamin D, vitamin C, zinc Continue home levothyroxine PPI Monitor blood sugars while on steroids Supportive care otherwise Discussed with patient that she had multiple laboratory abnormalities consistent with severe Covid in addition to low oxygen levels. Reviewed current treatment plans and that there were other medications we might consider adding. Overall she looks better at the moment that I would expect with the laboratory abnormalities noted, though he is requiring 6 L of oxygen therapy Currently anticipate disposition home with family though will ultimately depend on clinical course Full code Attestations Medical Necessity Statement*: Patient needs to be in hospital for the management of COVID PNA . 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
--- NOTE | 2021-04-15 18:11 | PC.PHAR ---
Vancomycin is dosed at 750mg IVPB every 12 hours to produce a predicted trough level of 16.51 (population based pharmacokinetic analysis). A trough level has been ordered to be obtained before the fourth dose to confirm and adjust if needed.
[2021-04-15] MEDS: remdesivir 100 MG in sodium chloride 0.9% (100 ml) 100 ML IV (18:39)
[2021-04-15 18:44] LABS: Anion Gap 14.7 (5-19); Blood Urea Nitrogen 20 mg/dL (6-20); Calcium 7.9 mg/dL (8.5-10.5); Carbon Dioxide 18 mmol/L (22-29); Chloride 108 mmol/L (98-107); Glomerular Filtration Rate 51.2 mL/min (90-130); Glucose 225 mg/dL (65-115); Osmolality Calculated 294 mOsm/kg (285-295); Potassium 3.7 mmol/L (3.5-5.1); Sodium 137 mmol/L (136-145)
[2021-04-15 18:48] LABS: Creatine Phosphokinase 1722 U/L (26-192)
[2021-04-15] MEDS: vancomycin 750 MG in sodium chloride 0.9% 250 ML 250 MG IV (19:17)
[2021-04-15] MEDS: sodium chloride 0.9% 1,000 ML 75 ML IV (19:19)
[2021-04-16] VITALS (30 sets, daily range): BP systolic 123–159; BP diastolic 71–88; PULSE 63–101; RESP 18–33; TEMP 36.4–36.8; O2SAT 91–96
[2021-04-16] MEDS: azithromycin 500 MG in sodium chloride 0.9% 250 ML 250 MG IV (02:17)
[2021-04-16] MEDS: cefTRIAXone 1,000 MG in sodium chloride 0.9% (plus) 50 ML 100 MG IV (02:18)
[2021-04-16] MEDS: dexamethasone 4 mg/mL INJ 6 MG IVP (02:19)
[2021-04-16] MEDS: enoxaparin 40 mg/0.4 mL Syringe SUBCUT (02:19)
[2021-04-16 05:04] LABS: Basophils % 0.2 %; Hematocrit 35.7 % (37.0-47.0); Hemoglobin 11.8 g/dL (11.5-15.3); Lymphocytes # 0.9 10^3/uL (0.8-4.8); Lymphocytes % 16.3 %; Mean Corpuscular HGB Conc 33.1 g/dL (30.0-36.0); Mean Corpuscular Hemoglobin 29.9 pg (28.0-34.0); Mean Corpuscular Volume 90.6 fL (81-99); Mean Platelet Volume 11.6 fL (7.4-10.4); Monocytes # 0.5 10^3/uL (0.2-0.9); Monocytes % 8.8 %; Neutrophils # 4.14 10^3/uL (1.8-7.7); Nucleated Red Blood Cells % 0 %; Platelet Count 142 10^3/cmm (130-400); Red Blood Count 3.94 10^6/uL (4.1-5.3); White Blood Count 5.6 10^3/uL (4.0-10.0)
[2021-04-16 05:21] LABS: Albumin Level 2.6 g/dL (3.5-5.2); Alkaline Phosphatase 35 IU/L (35-105); Blood Urea Nitrogen 20 mg/dL (6-20); Calcium 7.3 mg/dL (8.5-10.5); Carbon Dioxide 18 mmol/L (22-29); Chloride 110 mmol/L (98-107); Globulin 2.8 g/dL (1.3-4.6); Glomerular Filtration Rate 57.1 mL/min (90-130); Glucose 238 mg/dL (65-115); Magnesium 2.2 mg/dL (1.7-2.3); Osmolality Calculated 300 mOsm/kg (285-295); Sodium 140 mmol/L (136-145); Total Bilirubin 0.3 mg/dL (0.15-1.2); Total Protein 5.4 g/dL (6.6-8.7)
[2021-04-16 05:38] LABS: Alanine Aminotransferase 44 U/L (0-33); Aspartate Amino Transferase 63 U/L (0-32)
[2021-04-16 05:39] LABS: Creatine Phosphokinase 1299 U/L (26-192)
--- NOTE | 2021-04-16 06:01 | PC.NURSE ---
Shift Summary Patient is alert and oriented, appropriate and cooperative, has tried to sleep all night but was up off and on. Patient has had no pain and only coughs with activity, patients son updated early in the night and she is hoping she gets to go home soon. Patient is still on 6LNC and should Convalesce out of isolation today after 10 days of quarantine.
--- NOTE | 2021-04-16 06:03 | PC.NURSE ---
Shift Summary Patient is alert and oriented on 6L nasal cannula, she is hoping she gets to go home soon. patient has been appropriate and cooperative all night, she has not complained of any pain and only coughs when she is sob due to activity. Patient has rested off and on throughout the night, talked to her son and gave him an update, its possible for her to transport to [facility] tomorrow which she is looking forward too.
[2021-04-16] MEDS: vancomycin 750 MG in sodium chloride 0.9% 250 ML 250 MG IV (06:13)
[2021-04-16 07:16] LABS: Slide Review Slide Review Perform
[2021-04-16] MEDS: levothyroxine 175 mcg Tablet PO (08:47)
[2021-04-16] MEDS: cholecalciferol (vitamin D3) 1,000 unit Tablet 2000 UNIT PO (08:47)
[2021-04-16] MEDS: zinc gluconate 50 mg Tablet PO (08:47)
[2021-04-16] MEDS: pantoprazole DR 40 mg Tablet PO (08:47)
[2021-04-16] MEDS: ascorbic acid 500 mg Tablet PO ×2 (08:47→17:59)
[2021-04-16] MEDS: sodium chloride 0.9% 1,000 ML 75 ML IV (08:48)
--- NOTE | 2021-04-16 11:42 | XRR_ITS ---
PROCEDURE INFORMATION: Exam: XR Chest Exam date and time: 04/16/2021 11:42 AM Age: 55 years old Clinical indication: Shortness of breath; Additional info: SOB TECHNIQUE: Imaging protocol: XR of the chest. Views: Frontal portable upright view of the chest. COMPARISON: CR (CHEST, ) 04/14/2021 8:41 PM FINDINGS: Tubes, catheters and devices: EKG leads are present overlying the chest. EKG leads are present overlying the chest. Lungs: Heterogeneous air space opacities in the bilateral mid-lower lung zones is slightly improved. The pulmonary vasculature is normal. Increased left basilar pulmonary subsegmental/partial atelectasis. Pleural spaces: No definite pleural effusion. No pneumothorax. Heart/Mediastinum: The heart is normal in size and contour. Mediastinum: Stable. Bones/joints: Stable. XR/XR chest 1V portable [id number] IMPRESSION: 1. Mildly improved bilateral pulmonary infiltrates. 2. Increased left basilar pulmonary subsegmental/partial atelectasis.
[2021-04-16] MEDS: FUROsemide 10 mg/mL SDV 2mL 20 MG IVP (13:09)
--- NOTE | 2021-04-16 16:07 | P.PN_ITS ---
Subjective Subjective: Interval history: Patient was seen and examined this morning. Continues to have generalized weakness, shortness of breath is mildly improved. She has remained afebrile, requiring 5 to 6 L oxygen to nasal cannula. Medications: Reviewed: Yes Vitals/I&O/Wt Last Vital Signs Temp 97.6 F 04/16/21 12:00 Pulse 89 04/16/21 14:00 Resp 33 H 04/16/21 14:00 BP 140/77 04/16/21 14:00 Pulse Ox 95 04/16/21 14:00 04/16/21 04/16/21 04/16/21 06:59 14:59 22:59 Intake Total 300 / 1150 1360 / 1360 100 / 1460 Output Total 500 / 900 300 / 300 Balance -200 / 250 1060 / 1060 100 / 1160 Weight last 48 hrs Weight 97.522 kg Weight 97.976 kg Weight 94.347 kg Physical Exam Const: COMMON NORMALS: patient oriented x3 HENMT: COMMON NORMALS: normocephalic and atraumatic HEAD & SCALP: normocephalic and atraumatic Resp: EFFORT & INSPECTION: Yes symmetric chest movement OTHER: B/L Crackles present in both lung hutchinson Cardio: COMMON NORMALS: regular rate, regular rhythm, S1 normal heart sound present, S2 normal heart sound present, No gallops present (Cardio), No murmurs present (Cardio), No rub (Cardio) and Peripheral pulses 2+ throughout RATE: regular rate RHYTHM: regular rhythm HEART SOUNDS: S1 normal heart sound present and S2 normal heart sound present PERIPHERAL PULSES: Peripheral pulses 2+ throughout GI: COMMON NORMALS: Normal to inspection, nondistended, normoactive bowel sounds present, Soft to palpation, non-tender, No hepatosplenomegaly present and no masses AUSCULTATION: Yes normoactive bowel sounds PALPATION: Yes Soft to palpation and Yes No hepatosplenomegaly present RECTAL EXAM: deferred Extremity: COMMON NORMALS: no clubbing, cyanosis or edema and no pedal edema Neuro: COMMON NORMALS: patient oriented x3 Data : 04/16/21 04:23 04/16/21 04:23 Micro: Microbiology 04/16/21 02:45 MRSA Culture - Final Nose 04/14/21 20:15 Blood Culture - Preliminary Blood Coagulase negativ staphylococc 04/15/21 18:10 Blood Culture - Preliminary Blood SPECIMEN COLLECTED 04/15/21 18:18 Blood Culture - Preliminary Blood SPECIMEN COLLECTED 04/14/21 18:14 Blood Culture - Preliminary Blood NEGATIVE TO DATE A&P Assessment and plan (1) Acute respiratory failure: Acute hypoxic respiratory failure secondary 2/2 Covid PNA with possible superadded bacterial PNA. Currently on COVID Protocol. C.T.A Chest:No P/E : Bilateral, predominantly peripheral, patches of ground- glass interstitial lung disease opacification with early consolidation in the bilateral lower lobes consistent with active interstitial pneumonitis/pneumonia. Xray Chest : Mildly improved bilateral pulmonary infiltrates. D-dimer : 2.48 ESR: CRP:51-->52 Ferittin:549 Fibrinigen:457 Procalcitonin : 0.52-->0.43 Blood culture :GPC 10/10 Bottles Follow Repeat Blood Culture: Urine culture Sputum culture MRSA PCR:Negative Remdesivir 5 Day course Dexamethasone 6 mg I.V Daily Lovenox 40 mg sc q12 daily VANcomycin Ceftriaxone 1 gm q24 h Daily S/P 1 Dose of Tocilizumab ( 04/16 ) Advair inhalation Ascorbic acid po Zinc gluconate po Nebs Lasix as needed Status: Acute Qualifiers: Respiratory failure complication: hypoxia Qualified Code(s): J96.01 - Acute respiratory failure with hypoxia (2) Pneumonia due to 2019 novel coronavirus: Associated with leukopenia, thrombocytopenia, elevated D-dimer, hypoxemia, elevated troponin, elevated BNP, elevated CRP elevated procalcitonin suggestive of secondary bacterial infection although level is just outside of normal range, some elevation in transaminases, nausea, vomiting, dehydration, headache, malaise, respiratory failure with hypoxemia. Status: Acute (3) JIMI (acute kidney injury): Likely Prerenal 2/2 Dehydration Baseline SCR :Unkown Admission SCR : 1.5 Current SCR : 1.0 Monitor BMP Status: Acute (4) Rhabdomyolysis due to COVID-19: Initially on IV hydration. CK has appropriately trended down: 1299. Will encourage oral hydration now. Status: Acute (5) Elevated troponin: Without significant delta, also with elevated BNP: Denies any chest pain. Continue telemetry Follow 2D echo: Status: Acute (6) Leukopenia: Status: Acute (7) Thrombocytopenia: Status: Acute Additional A&P Information Mild elevation in blood sugar, probably related to steroids received over the last couple of days, no history of diabetes Inpatient admission ICU care initially Continue oxygen therapy Remdesivir Dexamethasone Rocephin and azithromycin for coverage of possible secondary pneumonia Blood cultures were collected Send bacterial antigens Albuterol and Advair Lovenox and SCDs Low rate IV fluids with bicarbonate to alkalinize the urine Recheck CK Monitor urine output closely Serial laboratory studies Check urinalysis Will provide vitamin D, vitamin C, zinc Continue home levothyroxine PPI Monitor blood sugars while on steroids Supportive care otherwise Discussed with patient that she had multiple laboratory abnormalities consistent with severe Covid in addition to low oxygen levels. Reviewed current treatment plans and that there were other medications we might consider adding. Overall she looks better at the moment that I would expect with the laboratory abnormalities noted, though he is requiring 6 L of oxygen therapy Currently anticipate disposition home with family though will ultimately depend on clinical course Full code Attestations Medical Necessity Statement*: Patient needs to be in the hospital for management of respiratory failure secondary to Covid pneumonia. 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
[2021-04-16 17:51] LABS: Vancomycin Trough 10.4 ug/mL (10-15)
[2021-04-16] MEDS: vancomycin 1,500 MG/300 ML PIGGYBACK 200 MG IV (17:59)
[2021-04-16] MEDS: remdesivir 100 MG in sodium chloride 0.9% (100 ml) 100 ML IV (17:59)
[2021-04-17] VITALS (31 sets, daily range): BP systolic 118–176; BP diastolic 58–93; PULSE 62–96; RESP 18–37; TEMP 36.5–37.2; O2SAT 89–95
[2021-04-17] MEDS: enoxaparin 40 mg/0.4 mL Syringe SUBCUT (02:42)
[2021-04-17] MEDS: cefTRIAXone 1,000 MG in sodium chloride 0.9% (plus) 50 ML 100 MG IV (02:43)
[2021-04-17] MEDS: dexamethasone 4 mg/mL INJ 6 MG IVP (02:43)
[2021-04-17] MEDS: azithromycin 500 MG in sodium chloride 0.9% 250 ML 250 MG IV (02:43)
--- NOTE | 2021-04-17 05:52 | PC.NURSE ---
Shift Summary Patient alert and oriented, in room resting, watching a movie early in the night. Patient has SOB when she gets up to the bedside commode. Patient is concerned because her is now in the hospital for his CoVID symptoms. Patient has a frequent cough that is starting to become more consistent. Patient is appropriate and cooperative.
--- NOTE | 2021-04-17 06:00 | USCV_ITS ---
Amarilys Aparicio Age: 55 Gender: F : 1965 Exam Date: 04/17/2021 05:32 Ordering Phys: Brad Leiva MD Technologist: Marga Tello Exam Location: [facility] [place] Indication: COVID POSITIVE WITH SOB BP: 141 / 76 HR: 73 Rhythm: Sinus Technical Quality: Adequate MEASUREMENTS (Male / Female) Normal Values 2D ECHO LV Diastolic Diameter PLAX 3.6 cm 4.2 - 5.9 / 3.9 - 5.3 cm LV Systolic Diameter PLAX 2.6 cm LV Chamber Size 3.5 cm IVS Diastolic Thickness 0.9 cm 0.6 - 1.0 / 0.6 - 0.9 cm IVS Systolic Thickness 1.6 cm LVPW Diastolic Thickness 1.3 cm 0.6 - 1.0 / 0.6 - 0.9 cm LVPW Systolic Thickness 1.4 cm RV Chamber Size 3.0 cm LVOT Diameter 2.1 cm LV Ejection Fraction 2D Teich 53.5 % LV Ejection Fraction MOD 2C 62.4 % LV Ejection Fraction 2C AL 63.0 % LA Diameter 2.9 cm LA Width 3.9 cm LA Height 3.9 cm RA Width 3.3 cm RA Height 3.4 cm Aorta at Sinotubular Diameter 2.7 cm M-MODE LV Diastolic Diameter MM 4.3 cm 4.2 - 5.9 / 3.9 - 5.3 cm LV Systolic Diameter MM 2.5 cm LV Ejection Fraction MM Teich 73.2 % IVS Diastolic Thickness MM 0.8 cm 0.6 - 1.0 / 0.6 - 0.9 cm IVS Systolic Thickness MM 1.4 cm LVPW Diastolic Thickness MM 0.9 cm 0.6 - 1.0 / 0.6 - 0.9 cm LVPW Systolic Thickness MM 1.1 cm Aortic Annulus Diameter 2.9 cm LA Ao Ratio MM 1.2 MV E Point Septal Separation 0.4 cm DOPPLER AV Peak Velocity 121.0 cm/s LVOT Peak Velocity 99.0 cm/s AV Area Cont Eq vti 3.0 cm squared AV Area Cont Eq pk 2.8 cm squared MV Area PHT 3.4 cm squared Mitral E to A Ratio 1.2 MV E' Velocity 56.5 cm/s Mitral E to MV E' Ratio 8.7 Mitral E to LV E' Lateral Ratio 8.5 Mitral E to LV E' Septal Ratio 8.8 TR Peak Velocity 227.2 cm/s TR Peak Gradient 20.6 mmHg TR Mean Velocity 190.1 cm/s TR Mean Gradient 15.4 mmHg TR Velocity Time Integral 75.2 cm TV Peak E Velocity 75.0 cm/s Right Atrial Pressure 8.0 mmHg Pulmonary Artery Systolic Pressu 28.6 mmHg PV Peak Velocity 67.0 cm/s RV Acceleration Time 0.1 s RV Ejection Time 0.4 s RV AcT/ET 0.3 FINDINGS Left Ventricle Normal left ventricular size and systolic function, EF 56 %. No regional wall motion abnormalities. Right Ventricle The right ventricle is normal in size and function. Right Atrium The right atrium is normal in size. Left Atrium The left atrium is normal in size. Mitral Valve Mildly thickened mitral valve. Aortic Valve No gross abnormalities noted Tricuspid Valve Tricuspid valve not well visualized. Pulmonic Valve Trace pulmonary valve regurgitation. Pericardium Normal pericardium without effusion. Aorta Normal ascending aorta dimension. CONCLUSIONS Normal left ventricular size and systolic function, EF 56 %. No regional wall motion abnormalities. Mildly thickened mitral valve. Trace pulmonary valve regurgitation. There is no pericardial effusion. There are no intracardiac masses. No previous study is available for comparison. Dr Bhaskar De La Torre MD FACC (Electronically Signed) Final Date: 17 April 2021 09:20 S
[2021-04-17 06:18] LABS: Basophils % 0.2 %; Lymphocytes # 0.9 10^3/uL (0.8-4.8); Lymphocytes % 16.7 %; Mean Corpuscular HGB Conc 32.4 g/dL (30.0-36.0); Mean Corpuscular Hemoglobin 29.6 pg (28.0-34.0); Mean Corpuscular Volume 91.1 fL (81-99); Mean Platelet Volume 11.4 fL (7.4-10.4); Monocytes # 0.5 10^3/uL (0.2-0.9); Monocytes % 9.3 %; Neutrophils % 72.1 %; Nucleated Red Blood Cells % 0 %; Platelet Count 155 10^3/cmm (130-400); Red Blood Count 4.06 10^6/uL (4.1-5.3); White Blood Count 5.4 10^3/uL (4.0-10.0)
[2021-04-17 06:32] LABS: Alanine Aminotransferase 55 U/L (0-33); Albumin Level 2.8 g/dL (3.5-5.2); Alkaline Phosphatase 39 IU/L (35-105); Aspartate Amino Transferase 58 U/L (0-32); Blood Urea Nitrogen 17 mg/dL (6-20); Calcium 7.6 mg/dL (8.5-10.5); Carbon Dioxide 21 mmol/L (22-29); Chloride 109 mmol/L (98-107); Ferritin 450 ng/mL (15-150); Globulin 2.8 g/dL (1.3-4.6); Glomerular Filtration Rate 57.1 mL/min (90-130); Glucose 187 mg/dL (65-115); Osmolality Calculated 296 mOsm/kg (285-295); Sodium 140 mmol/L (136-145); Total Bilirubin 0.4 mg/dL (0.15-1.2); Total Protein 5.6 g/dL (6.6-8.7)
[2021-04-17 06:39] LABS: D Dimer 1.46 ug/mIFEU (0-0.59)
[2021-04-17 07:05] LABS: Creatine Phosphokinase 773 U/L (26-192)
[2021-04-17 07:06] LABS: Anion Gap 13.8 (5-19); Lactate Dehydrogenase 723 U/L (135-214); Potassium 3.8 mmol/L (3.5-5.1)
[2021-04-17 07:19] LABS: Slide Review Slide Review Perform
[2021-04-17 07:21] LABS: Erythrocyte Sedimentation Rate 30 mm/hr (0-15)
[2021-04-17] MEDS: ascorbic acid 500 mg Tablet PO ×2 (08:08→18:14)
[2021-04-17] MEDS: levothyroxine 175 mcg Tablet PO (08:08)
[2021-04-17] MEDS: pantoprazole DR 40 mg Tablet PO (08:08)
[2021-04-17] MEDS: zinc gluconate 50 mg Tablet PO (08:08)
[2021-04-17] MEDS: cholecalciferol (vitamin D3) 1,000 unit Tablet 2000 UNIT PO (08:08)
[2021-04-17] MEDS: albuterol 8 gm MDI 2 PUFF INHALATION (08:46)
--- NOTE | 2021-04-17 09:30 | PC.NURSE ---
This nurse was assisting patient to bedside commode when she stated that she felt very weak today. She also seemed to be more short of breath and complained that she was dizzy. Oxygen levels remain above 90% on 6L nasal cannula. Oxygen drops to 88% when transferring to bedside commode.
--- NOTE | 2021-04-17 09:45 | P.PN_ITS ---
Subjective Subjective: Interval history: Overnight, the patient is remain between 5 to 6 L of nasal cannula, with an O2 sat between 92 to 94%. She endorses dyspnea, dizziness and lightheadedness with movement. She denies chest pain. She endorses dysgeusia, but not anosmia. She complains of diarrhea and nausea, but denies any abdominal pain. Medications: Reviewed: Yes Vitals/I&O/Wt Last Vital Signs Temp 98.6 F 04/17/21 09:00 Pulse 90 04/17/21 09:00 Resp 29 H 04/17/21 09:00 BP 176/90 04/17/21 09:00 Pulse Ox 94 04/17/21 09:00 04/16/21 04/17/21 04/17/21 22:59 06:59 14:59 Intake Total 740 / 2100 1300 / 3400 120 / 120 Output Total 251 / 551 Balance 740 / 1800 1049 / 2849 120 / 120 Weight last 48 hrs Weight 96.615 kg Weight 97.522 kg Physical Exam Const: GENERAL APPEARANCE: cooperative and other (Uncomfortable); not comfortable ORIENTATION/CONSCIOUSNESS: Yes awake, Yes oriented to person, Yes oriented to place and Yes oriented to time HENMT: COMMON NORMALS: normocephalic, atraumatic, external ears normal, Normal external nose present, moist oral mucous membranes and oropharynx normal HEAD & SCALP: normocephalic and atraumatic FACE & SINUS: normal facial exam NOSE: Normal external nose present EXTERNAL EAR: Yes external ears normal THROAT: posterior oropharynx normal Eye: COMMON NORMALS: Equal, round and reactive pupils present and conjunctivae normal CONJUNCTIVA: Yes conjunctivae normal PUPIL: Yes Equal, round and reactive pupils present EOM: No EOM abnormal Neck/C-Spine: COMMON NORMALS: supple and Thyroid normal GENERAL: Yes trachea midline and No lymphadenopathy THYROID: Thyroid normal Resp: AUSCULTATION: crackles Laterality: bilateral (Mid to lower lung lobes), no rhonchi, no wheezes and diminished lung sounds bilateral throughout Cardio: COMMON NORMALS: regular rate and regular rhythm RATE: regular rate RHYTHM: regular rhythm HEART SOUNDS: no click, no gallops, no murmurs and no rubs GI: COMMON NORMALS: Soft to palpation and No hepatosplenomegaly present AUSCULTATION: Yes normoactive bowel sounds PALPATION: Yes Soft to palpation, No Tenderness to palpation present (GI), No Guarding due to palpation present (GI), No Rigid due to palpation and Yes No hepatosplenomegaly present Extremity: GENERAL: No clubbing, No cyanosis, No deformity and No edema Neuro: SENSORIUM/ORIENTATION: Yes oriented to person, Yes oriented to place and Yes oriented to time CRANIAL NERVES: Yes CN normal except as noted GAIT: Yes Unable to assess gait (Due to complaints of dizziness and lighthea dedness) SENSORY EXAM: Yes Normal double simultaneous stimulation for sensation Psych: COMMON NORMALS: Normal thought process present and speech normal ACTIVITY/MOTOR BEHAVIOR: Yes appropriate eye contact SPEECH: Yes normal speech MOOD & AFFECT: Yes Other affect and mood findings present (Her mood is appropriate to her situation.) THOUGHT PROCESS: Normal thought process present Skin: COMMON NORMALS: no rashes or lesions noted GENERAL SKIN EXAM: no rashes or lesions noted Data : 04/17/21 05:35 04/17/21 05:35 Micro: Microbiology 04/15/21 18:10 Blood Culture - Preliminary Blood NEGATIVE TO DATE 04/15/21 18:18 Blood Culture - Preliminary Blood NEGATIVE TO DATE 04/16/21 02:45 MRSA Culture - Final Nose 04/14/21 20:15 Blood Culture - Preliminary Blood Coagulase negativ staphylococc A&P Assessment and plan (1) Acute respiratory failure with hypoxia: Status: Acute (2) Pneumonia due to 2019 novel coronavirus: Status: Acute (3) Thrombocytopenia: Status: Acute (4) Leukopenia: Status: Acute (5) Rhabdomyolysis due to COVID-19: Status: Acute (6) Acquired hypothyroidism: Status: Acute (7) COVID-19: Status: Acute Ms. Amarilys Aparicio is a 55yo woman w/ hypothyroidism, history of L. breast cancer in ~2003/2004 s/p lumpectomy only, 04/14/2021 who was admitted on 04/14/2021 for acute hypoxic respiratory failure due to bilateral pneumonia deemed to be due to COVID-19 virus, an JIMI Cr of 1.5), and Rhabdomyolysis. The patient started experiencing symptoms around 04/06/2021, and got tested the next day and positive. She had an elevated D-dimer in the ED. A CTA was done and it ws negative for a PE, concerning for bilateral pneumonitis/pneumonia consistent wi th COVID-19 pneumonitis/pneumonia. Her initial Bcx was positive for coagulase- negative staph, in 1 set of BCx, but repeat BCx was negative on all sets. On presentation, she was also noted to have elevated CK, and mildly elevated Trop T. TTE was done that showed an LVEF of 56%, no wall motion abnormalities, and a mildly thickened mitral valve. #Acute Hypoxic Respiratory failure #Bilateral viral COVID-19 pneumonia #COVID-19 virus - Continue Remdesivir, Dexamethasone, albuterol MDI 4 puffs qid, Zinc, Vit D. Ordered ensure for her poor po intake - Continue to monitor inflammatory markers - She has had 3 days of Azithromycin - d/c. #Electrolyte abnormalities - Replace prn #JIMI - Improved. Continue to monitor renal fxn and strict Is & Os. # Elevated Trop T - Likely demand ischemia. TTE shows no overt abnormalities # Rhambdomyolysis - Continue to trend and encourage PO intake. # Metabolic acidosis # Leukopenia, THrombocyopenia - Due to COVID-19 virus # Diarrhea - F/u C. diff and enteric pathogen panel pcr. Likely due to COVID # GERD - Continue Pantoprazole #Hypothyroidism - Continue home meds # MRSA of the nares positive DVT ppx: lovenox GI ppx: Pantoprazole. Dispo: Since her O2 sat has not changed in the past 24hrs, will transfer to med- surg. Attestations Medical Necessity Statement*: Patient requires continued hospitalization due to Acute hypoxic respiratory failure requiring 5-6L of O2. 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
--- NOTE | 2021-04-17 12:01 | PC.NURSE ---
Call placed to contact center analyst yrn Aparicio [phone]. Care plan, medications, and status reviewed. Son had many questions. All questions answered. Teach back performed. Interestingly enough, patients is also admitted. Son requests when possible, parents are moved into the same room. Explained that at present time, due to acuity being different, we are unable to accommodate that request. But a their stay goes on, we will attempt to make this happen if possible. Son was very grateful. Denies further questions.
[2021-04-17] MEDS: vancomycin 1,500 MG/300 ML PIGGYBACK 200 MG IV (12:02)
[2021-04-17] MEDS: albuterol 8 gm MDI 4 PUFF INHALATION ×2 (14:22→20:20)
[2021-04-17] MEDS: remdesivir 100 MG in sodium chloride 0.9% (100 ml) 100 ML IV (18:44)
[2021-04-17] MEDS: acetaminophen 325 mg Tablet 650 MG PO (20:50)
[2021-04-18] VITALS (30 sets, daily range): BP systolic 123–192; BP diastolic 77–122; PULSE 59–112; RESP 18–30; TEMP 36.3–36.9; O2SAT 90–96; BMI 35.9
[2021-04-18] MEDS: albuterol 8 gm MDI 4 PUFF INHALATION ×4 (02:36→20:51)
[2021-04-18] MEDS: enoxaparin 40 mg/0.4 mL Syringe SUBCUT (02:54)
[2021-04-18] MEDS: dexamethasone 4 mg/mL INJ 6 MG IVP (02:54)
[2021-04-18 04:04] LABS: Basophils % 0.4 %; Hematocrit 34.9 % (37.0-47.0); Hemoglobin 11.5 g/dL (11.5-15.3); Lymphocytes # 1.2 10^3/uL (0.8-4.8); Lymphocytes % 21.6 %; Mean Corpuscular Hemoglobin 29.8 pg (28.0-34.0); Mean Corpuscular Volume 90.4 fL (81-99); Mean Platelet Volume 10.4 fL (7.4-10.4); Monocytes # 0.6 10^3/uL (0.2-0.9); Monocytes % 10.3 %; Neutrophils % 63.6 %; Nucleated Red Blood Cells % 0 %; Platelet Count 172 10^3/cmm (130-400); Red Blood Count 3.86 10^6/uL (4.1-5.3); Red Cell Distribution Width 12.6 % (12.1-15.1); White Blood Count 5.7 10^3/uL (4.0-10.0)
[2021-04-18 04:31] LABS: D Dimer 1.63 ug/mIFEU (0-0.59)
[2021-04-18 04:36] LABS: Alanine Aminotransferase 88 U/L (0-33); Albumin Level 2.7 g/dL (3.5-5.2); Alkaline Phosphatase 48 IU/L (35-105); Anion Gap 15.4 (5-19); Aspartate Amino Transferase 72 U/L (0-32); Blood Urea Nitrogen 19 mg/dL (6-20); C Reactive Protein 5.6 mg/L (0.0-4.9); Calcium 7.6 mg/dL (8.5-10.5); Carbon Dioxide 20 mmol/L (22-29); Chloride 108 mmol/L (98-107); Ferritin 381 ng/mL (15-150); Globulin 2.6 g/dL (1.3-4.6); Glomerular Filtration Rate 57.1 mL/min (90-130); Glucose 220 mg/dL (65-115); Lactate Dehydrogenase 664 U/L (135-214); Osmolality Calculated 299 mOsm/kg (285-295); Potassium 3.4 mmol/L (3.5-5.1); Sodium 140 mmol/L (136-145); Total Bilirubin 0.5 mg/dL (0.15-1.2); Total Protein 5.3 g/dL (6.6-8.7)
[2021-04-18 04:48] LABS: Creatine Phosphokinase 475 U/L (26-192)
[2021-04-18 05:15] LABS: Erythrocyte Sedimentation Rate 19 mm/hr (0-15)
[2021-04-18 05:32] LABS: Slide Review Slide Review Perform
--- NOTE | 2021-04-18 07:06 | PC.NURSE ---
Shift Summary Patient had an uneventful evening, she slept most of the night and only had one complaint of pain, PRN Tylenol was given. She remained on 6L NC. No skin issues noted at this time. Left AC IV site is saline locked at this time, left hand IV was pulled out last evening. She gets up ad jesús with standby assistance.
[2021-04-18] MEDS: cholecalciferol (vitamin D3) 1,000 unit Tablet 2000 UNIT PO (07:51)
[2021-04-18] MEDS: ascorbic acid 500 mg Tablet PO ×2 (07:51→17:13)
[2021-04-18] MEDS: zinc gluconate 50 mg Tablet PO (07:51)
[2021-04-18] MEDS: levothyroxine 175 mcg Tablet PO (07:52)
[2021-04-18] MEDS: pantoprazole DR 40 mg Tablet PO (07:52)
[2021-04-18] MEDS: amlodipine 5 mg Tablet PO (07:52)
[2021-04-18 08:03] LABS: Phosphorus 2.1 mg/dL (2.5-4.5)
--- NOTE | 2021-04-18 09:22 | P.PN_ITS ---
Subjective Subjective: Interval history: This morning, the patient was seen, and she had a nasal cannula of her face and on top of her hair, because her nose was itching. On room air she was on 93%. She was physically tachypneic, but she stated that her dyspnea was improved slightly today compared to 04/17/2021. He states that the albuterol treatments make her feel shaky afterward. She daysi nues to endorse dizziness and lightheadedness with movement, but states that the symptoms are diminished, when she moves slowly and is deliberate. She continues to deny chest pain. She continues to have loose BMs whenever she urinates. A sample was sent for C. difficile and enteric pathogen panel testing. Medications: Reviewed: Yes Vitals/I&O/Wt Last Vital Signs Temp 98.4 F 04/18/21 08:00 Pulse 102 H 04/18/21 08:04 Resp 20 H 04/18/21 08:04 BP 192/108 04/18/21 08:00 Pulse Ox 94 04/18/21 08:04 04/17/21 04/18/21 04/18/21 22:59 06:59 14:59 Intake Total 760 / 1120 Balance 760 / 1120 Weight last 48 hrs Weight 97.976 kg Weight 96.615 kg Physical Exam Const: GENERAL APPEARANCE: cooperative and other (Uncomfortable); not comfortable ORIENTATION/CONSCIOUSNESS: Yes awake, Yes oriented to person, Yes oriented to place and Yes oriented to time HENMT: COMMON NORMALS: normocephalic, atraumatic, external ears normal, Normal external nose present, moist oral mucous membranes and oropharynx normal HEAD & SCALP: normocephalic and atraumatic FACE & SINUS: normal facial exam NOSE: Normal external nose present EXTERNAL EAR: Yes external ears normal THROAT: posterior oropharynx normal Eye: COMMON NORMALS: Equal, round and reactive pupils present and conjunctivae normal CONJUNCTIVA: Yes conjunctivae normal PUPIL: Yes Equal, round and reactive pupils present EOM: No EOM abnormal Neck/C-Spine: COMMON NORMALS: supple and Thyroid normal GENERAL: Yes trachea midline and No lymphadenopathy THYROID: Thyroid normal Resp: AUSCULTATION: crackles Laterality: bilateral (Throughout except OLEG. ), no rhonchi, no wheezes and diminished lung sounds bilateral in the lower lung hutchinson Cardio: COMMON NORMALS: regular rate and regular rhythm RATE: regular rate RHYTHM: regular rhythm HEART SOUNDS: no click, no gallops, no murmurs and no rubs GI: COMMON NORMALS: Soft to palpation and No hepatosplenomegaly present AUSCULTATION: Yes normoactive bowel sounds PALPATION: Yes Soft to palpation, No Tenderness to palpation present (GI), No Guarding due to palpation present (GI), No Rigid due to palpation and Yes No hepatosplenomegaly present Extremity: GENERAL: No clubbing, No cyanosis, No deformity and No edema Neuro: SENSORIUM/ORIENTATION: Yes oriented to person, Yes oriented to place and Yes oriented to time CRANIAL NERVES: Yes CN normal except as noted GAIT: Yes Unable to assess gait (Due to complaints of dizziness and lightheadedness) SENSORY EXAM: Yes Normal double simultaneous stimulation for sensation Psych: COMMON NORMALS: Normal thought process present and speech normal ACTIVITY/MOTOR BEHAVIOR: Yes appropriate eye contact SPEECH: Yes normal speech MOOD & AFFECT: Yes Other affect and mood findings present (Her mood is appropriate to her situation.) THOUGHT PROCESS: Normal thought process present Skin: COMMON NORMALS: no rashes or lesions noted GENERAL SKIN EXAM: no rashes or lesions noted Data : 04/18/21 03:36 04/18/21 03:36 Micro: Microbiology 04/17/21 21:06 C.difficile Toxin B Gene (PCR) - Final Stool - Stool Aspirate A&P Assessment and plan (1) Acute respiratory failure with hypoxia: Status: Acute (2) Pneumonia due to 2019 novel coronavirus: Status: Acute (3) Thrombocytopenia: Status: Acute (4) Leukopenia: Status: Acute (5) Rhabdomyolysis due to COVID-19: Status: Acute (6) Acquired hypothyroidism: Status: Acute (7) COVID-19: Status: Acute Ms. Amarilys Aparicio is a 55yo woman w/ hypothyroidism, history of L. breast cancer in ~2003/2004 s/p lumpectomy only, 04/14/2021 who was admitted on 04/14/2021 for acute hypoxic respiratory failure due to bilateral pneumonia deemed to be due to COVID-19 virus, an JIMI Cr of 1.5), and Rhabdomyolysis. The patient started experiencing symptoms around 04/06/2021, and got tested the next day and positive. She had an elevated D-dimer in the ED. A CTA was done and it ws negative for a PE, concerning for bilateral pneumonitis/pneumonia consistent with COVID-19 pneumonitis/pneumonia. Her initial Bcx was positive for coagulase-negative staph, in 1 set of BCx, but repeat BCx was negative on all sets. On presentation, she was also noted to have elevated CK, and mildly elevated Trop T. TTE was done that showed an LVEF of 56%, no wall motion abnormalities, and a mildly thickened mitral valve. #Acute Hypoxic Respiratory failure #Bilateral viral COVID-19 pneumonia #COVID-19 virus - Continue Remdesivir, Dexamethasone, albuterol MDI 4 puffs qid, Zinc, Vit D. Decrease MDI to 2puffs qid. Ordered ensure for her poor po intake - Continue to monitor inflammatory markers - She has had 3 days of Azithromycin - d/c'ed on 04/18/2021. - She is currently off O2. I decreased the 6L to 3L and advised her to put the O2 on before she transfers either from bed to chair etc. #Electrolyte abnormalities - Replace prn - phos replaced on 04/18 as well as potassium #JIMI - Improved. Continue to monitor renal fxn and strict Is & Os. # Elevated Trop T - Likely demand ischemia. TTE shows no overt abnormalities # Rhambdomyolysis - Continue to trend and encourage PO intake. # Metabolic acidosis # Leukopenia, THrombocyopenia - Due to COVID-19 virus # Diarrhea - Her C. diff is negative. Enteric pathogen panel pcr. Likely due to COVID # GERD - Continue Pantoprazole #Hypothyroidism - Continue home meds # MRSA of the nares positive DVT ppx: lovenox GI ppx: Pantoprazole. Dispo: She is currently off O2. I will transfer to med-surg. Attestations Medical Necessity Statement*: The patient requires continued hospitalization due to her acute hypoxic respiratory failure, and continuous requirement of monitoring of her inflammatory markers. Coding Level of Care Code Acute Computer Programming Manager for [facility] Diagnoses Acute respiratory failure with hypoxia J96.01 Pneumonia due to 2019 novel coronavirus U07.1; J12.82 Thrombocytopenia D69.6 Leukopenia D72.819 Rhabdomyolysis due to COVID-19 U07.1; M62.82 Acquired hypothyroidism E03.9 COVID-19 U07.1
[2021-04-18] MEDS: potassium chloride ER 20 mEq Tablet 40 MEQ PO (11:15)
--- NOTE | 2021-04-18 15:00 | PC.NURSE ---
Patient has been able to transfer self to bedside commode and to chair. Oxygen levels stayed above 90% with transfers. Multiple episodes of loose stools today.
[2021-04-18] MEDS: acetaminophen 325 mg Tablet 650 MG PO (15:45)
[2021-04-18] MEDS: remdesivir 100 MG in sodium chloride 0.9% (100 ml) 100 ML IV (17:13)
--- NOTE | 2021-04-18 18:30 | PC.NURSE ---
Patient was transferred to [facility] at 1830 via wheelchair. All belongings were with patient
[2021-04-19] VITALS (16 sets, daily range): BP systolic 123–160; BP diastolic 70–91; PULSE 74–109; RESP 16–20; TEMP 36.3–37; O2SAT 92–96
[2021-04-19] MEDS: albuterol 8 gm MDI 4 PUFF INHALATION ×4 (02:48→20:54)
[2021-04-19] MEDS: enoxaparin 40 mg/0.4 mL Syringe SUBCUT (02:51)
[2021-04-19] MEDS: dexamethasone 4 mg/mL INJ 6 MG IVP (02:51)
[2021-04-19 06:23] LABS: D Dimer 2.26 ug/mIFEU (0-0.59)
[2021-04-19 06:32] LABS: C Reactive Protein 4.5 mg/L (0.0-4.9); Ferritin 411 ng/mL (15-150); Lactate Dehydrogenase 730 U/L (135-214)
[2021-04-19 06:37] LABS: Procalcitonin 0.11 ng/mL (0-0.5)
[2021-04-19] MEDS: cholecalciferol (vitamin D3) 1,000 unit Tablet 2000 UNIT PO (08:33)
[2021-04-19] MEDS: levothyroxine 175 mcg Tablet PO (08:35)
[2021-04-19] MEDS: zinc gluconate 50 mg Tablet PO (08:35)
[2021-04-19] MEDS: ascorbic acid 500 mg Tablet PO ×2 (08:35→16:46)
[2021-04-19] MEDS: tizanidine 4 mg Tablet 2 MG PO (08:35)
[2021-04-19] MEDS: pantoprazole DR 40 mg Tablet PO (08:35)
[2021-04-19] MEDS: amlodipine 5 mg Tablet PO (08:35)
--- NOTE | 2021-04-19 08:58 | P.PN_ITS ---
Subjective Subjective: Interval history: Patient was seen today. She is currently sharing a room with her who is also hospitalized for Covid, but the hospital is getting discharged today. She had just returned from the restroom and was visibly short of breath. She states that she still feels short of breath when she speaks a lot, and with movement from the hospital bed to the bathroom. She states that she does not feel ready to be discharged yet. She denies any fever, chills, chest pain, palpitations. She states that her loose bowel movements still persist, but it is improving. Medications: Reviewed: Yes Vitals/I&O/Wt Last Vital Signs Temp 98.1 F 04/19/21 07:37 Pulse 75 04/19/21 08:40 Resp 18 04/19/21 08:40 BP 150/87 04/19/21 07:37 Pulse Ox 92 04/19/21 08:40 04/18/21 04/19/21 04/19/21 22:59 06:59 14:59 Intake Total 2820 / 3160 240 / 3400 Balance 2820 / 3160 240 / 3400 Weight last 48 hrs Weight 96.797 kg Weight 97.976 kg Physical Exam Const: GENERAL APPEARANCE: cooperative and other (Uncomfortable); not comfortable ORIENTATION/CONSCIOUSNESS: Yes awake, Yes oriented to person, Yes oriented to place and Yes oriented to time HENMT: COMMON NORMALS: normocephalic, atraumatic, external ears normal, Normal external nose present, moist oral mucous membranes and oropharynx normal HEAD & SCALP: normocephalic and atraumatic FACE & SINUS: normal facial exam NOSE: Normal external nose present EXTERNAL EAR: Yes external ears normal THROAT: posterior oropharynx normal Eye: COMMON NORMALS: Equal, round and reactive pupils present and conjunctivae normal CONJUNCTIVA: Yes conjunctivae normal PUPIL: Yes Equal, round and reactive pupils present EOM: No EOM abnormal Neck/C-Spine: COMMON NORMALS: supple and Thyroid normal GENERAL: Yes trachea midline and No lymphadenopathy THYROID: Thyroid normal Resp: AUSCULTATION: crackles Laterality: bilateral (Throughout except OLEG. ), no rhonchi, no wheezes and diminished lung sounds bilateral (in the mid to lower lung hutchinson) Cardio: COMMON NORMALS: regular rate and regular rhythm RATE: regular rate RHYTHM: regular rhythm HEART SOUNDS: no click, no gallops, no murmurs and no rubs GI: COMMON NORMALS: Soft to palpation and No hepatosplenomegaly present AUSCULTATION: Yes normoactive bowel sounds PALPATION: Yes Soft to palpation, No Tenderness to palpation present (GI), No Guarding due to palpation present (GI), No Rigid due to palpation and Yes No hepatosplenomegaly present Extremity: GENERAL: No clubbing, No cyanosis, No deformity and No edema Neuro: SENSORIUM/ORIENTATION: Yes oriented to person, Yes oriented to place and Yes oriented to time CRANIAL NERVES: Yes CN normal except as noted GAIT: Yes Unable to assess gait (Due to complaints of dizziness and lightheadedness) SENSORY EXAM: Yes Normal double simultaneous stimulation for sensation Psych: COMMON NORMALS: Normal thought process present and speech normal ACTIVITY/MOTOR BEHAVIOR: Yes appropriate eye contact SPEECH: Yes normal speech MOOD & AFFECT: Yes Other affect and mood findings present (Her mood is appropriate to her situation.) THOUGHT PROCESS: Normal thought process present Skin: COMMON NORMALS: no rashes or lesions noted GENERAL SKIN EXAM: no rashes or lesions noted Data : 04/19/21 05:39 04/19/21 05:39 Micro: Microbiology 04/17/21 21:06 Enteric Pathogens (PCR) - Final Stool - Stool Aspirate 04/17/21 21:06 C.difficile Toxin B Gene (PCR) - Final Stool - Stool Aspirate A&P Assessment and plan (1) Acute respiratory failure with hypoxia: Status: Acute (2) Pneumonia due to 2019 novel coronavirus: Status: Acute (3) Thrombocytopenia: Status: Acute (4) Leukopenia: Status: Acute (5) Rhabdomyolysis due to COVID-19: Status: Acute (6) Acquired hypothyroidism: Status: Acute (7) COVID-19: Status: Acute Ms. Amarilys Aparicio is a 55yo woman w/ hypothyroidism, history of L. breast cancer in ~2003/2004 s/p lumpectomy only, 04/14/2021 who was admitted on 04/14/2021 for acute hypoxic respiratory failure due to bilateral pneumonia deemed to be due to COVID-19 virus, an JIMI Cr of 1.5), and Rhabdomyolysis. The patient started experiencing symptoms around 04/06/2021, and got tested the next day and positive. She had an elevated D-dimer in the ED. A CTA was done and it ws negative for a PE, concerning for bilateral pneumonitis/pneumonia consistent with COVID-19 pneumonitis/pneumonia. Her initial Bcx was positive for coagulase-negative staph, in 1 set of BCx, but repeat BCx was negative on all sets. On presentation, she was also noted to have elevated CK, and mildly elevated Trop T. TTE was done that showed an LVEF of 56%, no wall motion abnormalities, and a mildly thickened mitral valve. #Acute Hypoxic Respiratory failure #Bilateral viral COVID-19 pneumonia #COVID-19 virus - Continue Remdesivir, Dexamethasone, albuterol MDI 4 puffs qid, Zinc, Vit D. Decrease MDI to 2puffs qid. Ordered ensure for her poor po intake - Continue to monitor inflammatory markers - She has had 3 days of Azithromycin - d/c'ed on 04/18/2021. - Now on 3L. Her CXR continues to improve. Given her elevated BNP, will give her a dose of 20 mg IV Lasix x1. -For 6-minute walk test on 04/20/2021 # Drug induced hyperglycemia - Started Insulin subq 10units qhs w/ MD SSI on 04/19. Will start to taper Dexamethasone. #Electrolyte abnormalities - Replace prn - phos replaced on 04/18 as well as potassium #JIMI - Improved. Continue to monitor renal fxn and strict Is & Os. # Elevated Trop T - Likely demand ischemia. TTE shows no overt abnormalities # Rhambdomyolysis - Continue to trend and encourage PO intake. # Metabolic acidosis # Leukopenia, THrombocyopenia - Due to COVID-19 virus # Diarrhea - Her C. diff is negative. Enteric pathogen panel pcr. Likely due to COVID # GERD - Continue Pantoprazole #Hypothyroidism - Continue home meds # MRSA of the nares positive DVT ppx: lovenox GI ppx: Pantoprazole. Dispo: She is currently off O2. I will transfer to med-surg. Attestations Medical Necessity Statement*: Patient requires continued hospitalization for her acute hypoxic respiratory failure. Plan for a minute walk test on 04/20/2021, to determine her oxygen requirements on discharge, and hopefully dispo. Coding Level of Care Code Acute Players Assistant for [facility] Fwd Exam Comprehensive Diagnoses Acute respiratory failure with hypoxia J96.01 Pneumonia due to 2019 novel coronavirus U07.1; J12.82 Thrombocytopenia D69.6 Leukopenia D72.819 Rhabdomyolysis due to COVID-19 U07.1; M62.82 Acquired hypothyroidism E03.9 COVID-19 U07.1
--- NOTE | 2021-04-19 09:01 | XR_ITS ---
WS: [id number] Portable AP upright chest, 04/19/2021 Clinical Data: Respiratory failure Comparison: Portable chest, 04/16/2021. Findings: The bilateral pulmonary opacities remain the same. The heart is normal. No pneumothorax is seen. Monitor leads are on the chest wall. XR/XR chest 1V portable [id number] Impression: No change in bilateral pulmonary opacities.
[2021-04-19 09:18] LABS: Basophils % 0.1 %; Eosinophils % 0.1 %; Hematocrit 39.9 % (37.0-47.0); Hemoglobin 13.2 g/dL (11.5-15.3); Lymphocytes # 1.3 10^3/uL (0.8-4.8); Lymphocytes % 18.3 %; Mean Corpuscular HGB Conc 33.1 g/dL (30.0-36.0); Mean Corpuscular Volume 90.7 fL (81-99); Monocytes # 0.5 10^3/uL (0.2-0.9); Monocytes % 7.3 %; Neutrophils # 5.03 10^3/uL (1.8-7.7); Neutrophils % 69.2 %; Nucleated Red Blood Cells % 0.3 %; Platelet Count 238 10^3/cmm (130-400); White Blood Count 7.3 10^3/uL (4.0-10.0)
[2021-04-19 09:41] LABS: Alanine Aminotransferase 160 U/L (0-33); Albumin Level 3.1 g/dL (3.5-5.2); Alkaline Phosphatase 49 IU/L (35-105); Anion Gap 15.2 (5-19); Aspartate Amino Transferase 101 U/L (0-32); Blood Urea Nitrogen 19 mg/dL (6-20); Calcium 8.1 mg/dL (8.5-10.5); Carbon Dioxide 21 mmol/L (22-29); Chloride 106 mmol/L (98-107); Globulin 2.8 g/dL (1.3-4.6); Glomerular Filtration Rate 64.5 mL/min (90-130); Glucose 195 mg/dL (65-115); Magnesium 2.2 mg/dL (1.7-2.3); NT Pro B Type Natriuretic Pept 1023 pg/mL (0-125); Osmolality Calculated 294 mOsm/kg (285-295); Phosphorus 2.9 mg/dL (2.5-4.5); Potassium 4.2 mmol/L (3.5-5.1); Sodium 138 mmol/L (136-145); Total Bilirubin 0.8 mg/dL (0.15-1.2); Total Protein 5.9 g/dL (6.6-8.7)
[2021-04-19 09:45] LABS: Estmated Average Glucose 137; Hemoglobin A1C 6.4 % (4.0-6.0)
[2021-04-19 09:47] LABS: Creatine Phosphokinase 435 U/L (26-192)
[2021-04-19 14:34] LABS: Glucose Point of Care 304 mg/dL (70-110)
[2021-04-19 18:10] LABS: Glucose Point of Care 220 mg/dL (70-110)
[2021-04-19 21:00] LABS: Glucose Point of Care 114 mg/dL (70-110)
[2021-04-19] MEDS: FUROsemide 10 mg/mL SDV 2mL 20 MG IVP (21:09)
[2021-04-20] VITALS (19 sets, daily range): BP systolic 96–126; BP diastolic 61–76; PULSE 77–111; RESP 16–18; TEMP 36.4–36.8; O2SAT 88–98; BMI 35.5
[2021-04-20] MEDS: albuterol 8 gm MDI 4 PUFF INHALATION ×4 (02:05→20:06)
[2021-04-20] MEDS: enoxaparin 40 mg/0.4 mL Syringe SUBCUT (03:02)
[2021-04-20 06:33] LABS: Glucose Point of Care 170 mg/dL (70-110)
[2021-04-20 07:41] LABS: Ferritin 350 ng/mL (15-150); NT Pro B Type Natriuretic Pept 522 pg/mL (0-125)
[2021-04-20] MEDS: ascorbic acid 500 mg Tablet PO ×2 (09:07→17:52)
[2021-04-20] MEDS: levothyroxine 175 mcg Tablet PO (09:07)
[2021-04-20] MEDS: pantoprazole DR 40 mg Tablet PO (09:07)
[2021-04-20] MEDS: amlodipine 5 mg Tablet PO (09:07)
[2021-04-20] MEDS: cholecalciferol (vitamin D3) 1,000 unit Tablet 2000 UNIT PO (09:07)
[2021-04-20] MEDS: zinc gluconate 50 mg Tablet PO (09:07)
[2021-04-20 10:55] LABS: Glucose Point of Care 149 mg/dL (70-110)
[2021-04-20 16:34] LABS: Basophils % 0.4 %; Eosinophils # 0.2 10^3/uL (0.0-0.8); Hematocrit 38.3 % (37.0-47.0); Hemoglobin 12.6 g/dL (11.5-15.3); Lymphocytes # 2.4 10^3/uL (0.8-4.8); Lymphocytes % 29.4 %; Mean Corpuscular HGB Conc 32.9 g/dL (30.0-36.0); Mean Corpuscular Hemoglobin 29.7 pg (28.0-34.0); Mean Corpuscular Volume 90.3 fL (81-99); Monocytes # 0.7 10^3/uL (0.2-0.9); Monocytes % 9.1 %; Neutrophils # 4.34 10^3/uL (1.8-7.7); Nucleated Red Blood Cells % 0 %; Platelet Count 301 10^3/cmm (130-400); Red Blood Count 4.24 10^6/uL (4.1-5.3); Red Cell Distribution Width 13.2 % (12.1-15.1)
[2021-04-20 17:06] LABS: Glucose Point of Care 136 mg/dL (70-110)
[2021-04-20 17:12] LABS: Alanine Aminotransferase 171 U/L (0-33); Albumin Level 2.9 g/dL (3.5-5.2); Alkaline Phosphatase 50 IU/L (35-105); Aspartate Amino Transferase 102 U/L (0-32); Blood Urea Nitrogen 23 mg/dL (6-20); Carbon Dioxide 25 mmol/L (22-29); Chloride 106 mmol/L (98-107); Globulin 2.6 g/dL (1.3-4.6); Glomerular Filtration Rate 57.1 mL/min (90-130); Glucose 138 mg/dL (65-115); Magnesium 2.1 mg/dL (1.7-2.3); Osmolality Calculated 300 mOsm/kg (285-295); Sodium 142 mmol/L (136-145); Total Bilirubin 0.9 mg/dL (0.15-1.2); Total Protein 5.5 g/dL (6.6-8.7)
[2021-04-20 17:52] LABS: Slide Review Slide Review Perform
[2021-04-20 20:09] LABS: Glucose Point of Care 123 mg/dL (70-110)
--- NOTE | 2021-04-20 22:41 | P.PN_ITS ---
Subjective Subjective: Interval history: Overnight, the patient was given a dose of 40 mg IV Lasix x1 to help with possible volume overload based on BNP and physical exam. According to the nurse, the patient urinated approximately 6 times, the patient stated that her urine appeared a bit concentrated. During the day, she felt nauseous while taking her medications and vomited. At the time she was seen she looked weak. She denies abdominal pain, she states that her stools are becoming more formed and according to her, she had 3 episodes. She walked with RT today, and was noted to need 2 L of O2 with exertion, because her O2 sat decreased to 88%. Medications: Reviewed: Yes Vitals/I&O/Wt Last Vital Signs Temp 97.6 F 04/20/21 20:00 Pulse 98 04/20/21 20:12 Resp 18 04/20/21 20:06 BP 103/63 04/20/21 20:00 Pulse Ox 96 04/20/21 20:06 04/20/21 04/20/21 04/20/21 06:59 14:59 22:59 Intake Total 200 / 740 240 / 240 240 / 480 Balance 200 / 740 240 / 240 240 / 480 Weight last 48 hrs Weight 96.797 kg Weight 96.797 kg Physical Exam Const: GENERAL APPEARANCE: cooperative and other (Uncomfortable); not comfortable ORIENTATION/CONSCIOUSNESS: Yes awake, Yes oriented to person, Yes oriented to place and Yes oriented to time HENMT: COMMON NORMALS: normocephalic, atraumatic, external ears normal, Normal external nose present, moist oral mucous membranes and oropharynx normal HEAD & SCALP: normocephalic and atraumatic FACE & SINUS: normal facial exam NOSE: Normal external nose present EXTERNAL EAR: Yes external ears normal THROAT: posterior oropharynx normal Eye: COMMON NORMALS: Equal, round and reactive pupils present and conjunctivae normal CONJUNCTIVA: Yes conjunctivae normal PUPIL: Yes Equal, round and reactive pupils present EOM: No EOM abnormal Neck/C-Spine: COMMON NORMALS: supple and Thyroid normal GENERAL: Yes trachea midline and No lymphadenopathy THYROID: Thyroid normal Resp: AUSCULTATION: crackles Laterality: bilateral (Clear in b/l UL. Crackles in b/l mid to lower lobes), no rhonchi, no wheezes and diminished lung sounds bilateral (in the mid to lower lung hutchinson) in the lower lung hutchinson Cardio: COMMON NORMALS: regular rate and regular rhythm RATE: regular rate RHYTHM: regular rhythm HEART SOUNDS: no click, no gallops, no murmurs and no rubs GI: COMMON NORMALS: Soft to palpation and No hepatosplenomegaly present AUSCULTATION: Yes normoactive bowel sounds PALPATION: Yes Soft to palpation, No Tenderness to palpation present (GI), No Guarding due to palpation present (GI), No Rigid due to palpation and Yes No hepatosplenomegaly present Extremity: GENERAL: No clubbing, No cyanosis, No deformity and No edema Neuro: SENSORIUM/ORIENTATION: Yes oriented to person, Yes oriented to place and Yes oriented to time CRANIAL NERVES: Yes CN normal except as noted GAIT: Yes Unable to assess gait (Due to complaints of dizziness and lightheadedness) SENSORY EXAM: Yes Normal double simultaneous stimulation for sensation Psych: COMMON NORMALS: Normal thought process present and speech normal ACTIVITY/MOTOR BEHAVIOR: Yes appropriate eye contact SPEECH: Yes normal speech MOOD & AFFECT: Yes Other affect and mood findings present (Her mood is appropriate to her situation.) THOUGHT PROCESS: Normal thought process present Skin: COMMON NORMALS: no rashes or lesions noted GENERAL SKIN EXAM: no rashes or lesions noted Data : 04/21/21 06:27 04/20/21 16:22 Micro: Microbiology 04/15/21 18:10 Blood Culture - Final Blood NO GROWTH AFTER 5 DAYS 04/15/21 18:18 Blood Culture - Final Blood NO GROWTH AFTER 5 DAYS 04/14/21 18:14 Blood Culture - Final Blood NO GROWTH AFTER 5 DAYS A&P Assessment and plan (1) Acute respiratory failure with hypoxia: Status: Acute (2) Pneumonia due to 2019 novel coronavirus: Status: Acute (3) Thrombocytopenia: Status: Acute (4) Leukopenia: Status: Acute (5) Rhabdomyolysis due to COVID-19: Status: Acute (6) Acquired hypothyroidism: Status: Acute (7) COVID-19: Status: Acute Ms. Amarilys Aparicio is a 55yo woman w/ hypothyroidism, history of L. breast cancer in ~ s/p lumpectomy only, 04/14/2021 who was admitted on 04/14/2021 for acute hypoxic respiratory failure due to bilateral pneumonia deemed to be due to COVID-19 virus, an JIMI Cr of 1.5), and Rhabdomyolysis. The patient started experiencing symptoms around 04/06/2021, and got tested the next day and positive. She had an elevated D-dimer in the ED. A CTA was done and it ws negative for a PE, concerning for bilateral pneumonitis/pneumonia consistent with COVID-19 pneumonitis/pneumonia. Her initial Bcx was positive for coagulase-negative staph, in 1 set of BCx, but repeat BCx was negative on all sets. On presentation, she was also noted to have elevated CK, and mildly elevated Trop T. TTE was done that showed an LVEF of 56%, no wall motion abnormalities, and a mildly thickened mitral valve. #Acute Hypoxic Respiratory failure #Bilateral viral COVID-19 pneumonia #COVID-19 virus - Continue Remdesivir, Dexamethasone, albuterol MDI 4 puffs qid, Zinc, Vit D. Decrease MDI to 2puffs qid. Ordered ensure for her poor po intake - Continue to monitor inflammatory markers - She has had 3 days of Azithromycin - d/c'ed on 04/18/2021. - Her CXR continues to improve.s/p Lasix 20mg x1 for elevated BNP -For 6-minute walk test on 04/20/2021 showed her O2 decreased to 88%, such that she needed to L. # Drug induced hyperglycemia - Started Insulin subq 10units qhs w/ SSI on 04/19. Will start to taper Dexamethasone. #Electrolyte abnormalities - Replace prn - phos replaced on 04/18 as well as potassium #JIMI - Improved. Continue to monitor renal fxn and strict Is & Os. # Elevated Trop T - Likely demand ischemia. TTE shows no overt abnormalities # Rhambdomyolysis - Continue to trend and encourage PO intake. # Metabolic acidosis # Leukopenia, THrombocyopenia - Due to COVID-19 virus # Diarrhea - Her C. diff is negative. Enteric pathogen panel pcr. Likely due to COVID # GERD - Continue Pantoprazole #Hypothyroidism - Continue home meds # MRSA of the nares positive DVT ppx: lovenox GI ppx: Pantoprazole. Dispo: She is currently off O2. I will transfer to med-surg. Attestations Medical Necessity Statement*: Given episode of nausea vomiting, weakness, will monitor the patient overnight and if improved discharge the next day. Time Spent in Patient Care: 16 - 35 minutes Coding Level of Care Code Acute [employer] for g Fwd Diagnoses Acute respiratory failure with hypoxia J96.01 Pneumonia due to 2019 novel coronavirus U07.1; J12.82 Thrombocytopenia D69.6 Leukopenia D72.819 Rhabdomyolysis due to COVID-19 U07.1; M62.82 Acquired hypothyroidism E03.9 COVID-19 U07.1
[2021-04-21] VITALS (7 sets, daily range): BP systolic 96–118; BP diastolic 61–72; PULSE 70–88; RESP 14–18; TEMP 36.4–36.6; O2SAT 93–96
[2021-04-21] MEDS: enoxaparin 40 mg/0.4 mL Syringe SUBCUT (02:28)
[2021-04-21 06:19] LABS: Glucose Point of Care 109 mg/dL (70-110)
[2021-04-21 08:13] LABS: C Reactive Protein 1.8 mg/L (0.0-4.9); Ferritin 306 ng/mL (15-150); NT Pro B Type Natriuretic Pept 146 pg/mL (0-125)
[2021-04-21] MEDS: albuterol 8 gm MDI 4 PUFF INHALATION (09:11)
[2021-04-21] MEDS: cholecalciferol (vitamin D3) 1,000 unit Tablet 2000 UNIT PO (09:41)
[2021-04-21] MEDS: ascorbic acid 500 mg Tablet PO (09:41)
[2021-04-21] MEDS: levothyroxine 175 mcg Tablet PO (09:41)
[2021-04-21] MEDS: amlodipine 5 mg Tablet PO (09:41)
[2021-04-21] MEDS: zinc gluconate 50 mg Tablet PO (09:41)
[2021-04-21] MEDS: pantoprazole DR 40 mg Tablet PO (09:41)
[2021-04-21 10:18] LABS: Hematocrit 38.9 % (37.0-47.0); Mean Corpuscular HGB Conc 33.4 g/dL (30.0-36.0); Mean Corpuscular Hemoglobin 31.2 pg (28.0-34.0); Mean Corpuscular Volume 93.3 fL (81-99); Mean Platelet Volume 11.2 fL (7.4-10.4); Platelet Count 330 10^3/cmm (130-400); Red Blood Count 4.17 10^6/uL (4.1-5.3); Red Cell Distribution Width 13.8 % (12.1-15.1); White Blood Count 6.4 10^3/uL (4.0-10.0)
[2021-04-21 10:35] LABS: Slide Review Slide Review Perform
[2021-04-21 10:38] LABS: Absolute Neutrophil 4.3 10^3/cmm (1.4-6.5); Band Neutrophils Absolute 0.3 10^3/cmm (0.0-1.2); Lymphocytes 24 %; Monocytes Absolute 0.3 10^3/cmm (0.1-0.6); Platelet Estimate Normal (Normal); Segmented Neutrophils 62 %; Total Cells Counted 100 (0-100)
[2021-04-21 10:39] LABS: Eosinophils 0 %; Lymphocytes Absolute 1.5 10^3/cmm (1.2-3.4)
[2021-04-21 11:38] LABS: Glucose Point of Care 150 mg/dL (70-110)
--- NOTE | 2021-04-21 13:11 | P.DS_ITS ---
Discharge Providers Date of Admission: 04/15/21 00:02 Date of Discharge: April 21, 2021 Attending Provider at Admission: Minna John MD Attending Provider at Discharge: Xin Perdomo MD Diagnoses at Discharge Discharge Diagnosis (1) Acute respiratory failure with hypoxia: Status: Resolved (2) Pneumonia due to 2019 novel coronavirus: Status: Acute (3) Thrombocytopenia: Status: Resolved (4) Leukopenia: Status: Resolved (5) Rhabdomyolysis due to COVID-19: Status: Resolved (6) Acquired hypothyroidism: (7) COVID-19: Status: Acute Reason for Visit Reason for Visit: COVID(+) AT [facility] [place] Hospital Course Ms. Amarilys Aparicio is a 55yo woman w/ hypothyroidism, history of L. breast cancer in ~2003/2004 s/p lumpectomy only, 04/14/2021 who was admitted on 04/14/2021 for acute hypoxic respiratory failure due to bilateral pneumonia deemed to be due to COVID-19 virus, an JIMI Cr of 1.5), and Rhabdomyolysis. The patient started experiencing symptoms around 04/06/2021, and got tested the next day and positive. She had an elevated D-dimer in the ED. A CTA was done and it ws negative for a PE, concerning for bilateral pneumonitis/pneumonia consistent with COVID-19 pneumonitis/pneumonia. Her initial Bcx was positive for coagulase-negative staph, in 1 set of BCx, but repeat BCx was negative on all sets. On presentation, she was also noted to have elevated CK, and mildly elevated Trop T. TTE was done that showed an LVEF of 56%, no wall motion abnormalities, and a mildly thickened mitral valve. Her Rhabdomyolysis resolved w/ fluids. For her Acute Hypoxic Respiratory failure, Bilateral viral COVID-19 pneumonia, & COVID- 19 virus, she was administered Remdesivir, Dexamethasone, albuterol, Zinc, Vit D, Ceftriaxone and Azithromycin. She required up to 6L [place] before she started to improve. She was weaned to 2L NC. She had a 6-minute walk test on 04/20/2021 that showed that her O2 decreased to 88%, such that she needed to 2L. Her JIMI and Rhabdomyolysis resolved. Her symptoms of diarrhea mostly resolved by the time of discharge. Her diarrhea was deemed Likely due to COVID, given that her C. diff & Enteric pathogen panel pcr were negative. She was d/c'ed on 04/21/2021. Physical Exam Const: GENERAL APPEARANCE: cooperative and other (Uncomfortable); not comfortable ORIENTATION/CONSCIOUSNESS: Yes awake, Yes oriented to person, Yes oriented to place and Yes oriented to time HENMT: COMMON NORMALS: normocephalic, atraumatic, external ears normal, Normal external nose present, moist oral mucous membranes and oropharynx normal HEAD & SCALP: normocephalic and atraumatic FACE & SINUS: normal facial exam NOSE: Normal external nose present EXTERNAL EAR: Yes external ears normal THROAT: posterior oropharynx normal Eye: COMMON NORMALS: Equal, round and reactive pupils present and conjunctivae normal CONJUNCTIVA: Yes conjunctivae normal PUPIL: Yes Equal, round and reactive pupils present EOM: No EOM abnormal Neck/C-Spine: COMMON NORMALS: supple and Thyroid normal GENERAL: Yes trachea midline and No lymphadenopathy THYROID: Thyroid normal Resp: AUSCULTATION: crackles Laterality: bilateral (Clear in b/l UL. Crackles in b/l mid to lower lobes), no rhonchi, no wheezes and diminished lung sounds bilateral (in the mid to lower lung hutchinson) in the lower lung hutchinson Cardio: COMMON NORMALS: regular rate and regular rhythm RATE: regular rate RHYTHM: regular rhythm HEART SOUNDS: no click, no gallops, no murmurs and no rubs GI: COMMON NORMALS: Soft to palpation and No hepatosplenomegaly present AUSCULTATION: Yes normoactive bowel sounds PALPATION: Yes Soft to palpation, No Tenderness to palpation present (GI), No Guarding due to palpation present (GI), No Rigid due to palpation and Yes No hepatosplenomegaly present Extremity: GENERAL: No clubbing, No cyanosis, No deformity and No edema Neuro: SENSORIUM/ORIENTATION: Yes oriented to person, Yes oriented to place and Yes oriented to time CRANIAL NERVES: Yes CN normal except as noted GAIT: Yes Unable to assess gait (Due to complaints of dizziness and lightheadedness) SENSORY EXAM: Yes Normal double simultaneous stimulation for sensation Psych: COMMON NORMALS: Normal thought process present and speech normal ACTIVITY/MOTOR BEHAVIOR: Yes appropriate eye contact SPEECH: Yes normal speech MOOD & AFFECT: Yes Other affect and mood findings present (Her mood is appropriate to her situation.) THOUGHT PROCESS: Normal thought process present Skin: COMMON NORMALS: no rashes or lesions noted GENERAL SKIN EXAM: no rashes or lesions noted Discharge Data Data Completed and Pending: Completed Studies During Hospitalization Category Date Time Status CT angio chest PE protcl [id number] Stat Cat Scan 04/14/21 21:04 Completed XR chest 1V dash ble [id number] Routine Exams 04/16/21 11:42 Completed XR chest 1V dash ble [id number] Routine Exams 04/19/21 09:01 Completed XR chest 1V dash ble [id number] Stat Exams 04/14/21 20:28 Completed CV. echo complete * [id number] Routine Ultrasound 04/17/21 06:00 Completed Pending at discharge Category Date Time Status C Reactive Protei n AM LABS Lab 04/22/21 04:00 Ordered Comprehensive Met abolic Panel Stat Lab 04/21/21 12:10 Ordered Ferritin AM LABS Lab 04/22/21 04:00 Ordered Magnesium Stat Lab 04/21/21 12:10 Ordered Phosphorus Stat Lab 04/21/21 12:10 Ordered Labs from last 24 hours 04/21/21 04/21/21 04/21/21 11:54 10:50 06:27 WBC RBC Hgb Hct MCV MCH MCHC RDW Plt Count MPV Neut % (Auto) Lymph % (Auto) [place] % (Auto) Eos % (Auto) Baso % (Auto) Neut # (Auto) Lymph # (Auto) [place] # (Auto) Eos # (Auto) Baso # (Auto) Nucleated RBC % (a uto) Total Counted Atypical Lymphs % Absolute Neutrophi ls Segmented Neutroph ils Abs Segm Neuts (Ma n) Band Neutrophils Abs Band Neuts (Ma n) Absolute Lymphocyt es Lymphocytes ([place]) Monocytes (Manual) Absolute Monocytes Eosinophils ([place]) Absolute Eosinophi ls Basophils (Manual) Absolute Basophils Metamyelocytes Myelocytes Nucleated RBCs # Platelet Estimate Sodium Cancelled Cancelled Potassium Cancelled Cancelled Chloride Cancelled Cancelled Carbon Dioxide Cancelled Cancelled Anion Gap Cancelled Cancelled BUN Cancelled Cancelled Creatinine Cancelled Cancelled GFR Calculation Cancelled Cancelled Glucose Cancelled Cancelled POC Glucose 150 H Calculated Osmolal ity Cancelled Cancelled Calcium Cancelled Cancelled Phosphorus Cancelled Cancelled Magnesium Cancelled Cancelled Ferritin Total Bilirubin Cancelled Cancelled AST Cancelled Cancelled ALT Cancelled Cancelled Alkaline Phosphata se Cancelled Cancelled C-Reactive Protein NT-Pro-B Natriuret Pep Total Protein Cancelled Cancelled Albumin Cancelled Cancelled Globulin Cancelled Cancelled 04/21/21 04/21/21 04/21/21 06:27 06:27 06:06 WBC 6.4 RBC 4.17 Hgb 13.0 Hct 38.9 MCV 93.3 MCH 31.2 MCHC 33.4 RDW 13.8 Plt Count 330 MPV 11.2 H Neut % (Auto) Lymph % (Auto) Not Reportable [place] % (Auto) Not Reportable Eos % (Auto) Baso % (Auto) Neut # (Auto) Lymph # (Auto) Not Reportable [place] # (Auto) Not Reportable Eos # (Auto) Baso # (Auto) Nucleated RBC % (a uto) Total Counted 100 Atypical Lymphs % 0.0 Absolute Neutrophi ls 4.3 Segmented Neutroph ils 62 Abs Segm Neuts (Ma n) 4.0 Band Neutrophils 5.0 Abs Band Neuts (Ma n) 0.3 Absolute Lymphocyt es 1.5 Lymphocytes (Man[place] l) 24 Monocytes (Manual) 5.0 Absolute Monocytes 0.3 Eosinophils (Man[place] l) 0 Absolute Eosinophi ls 0.0 Basophils (Manual) 0.0 Absolute Basophils 0.0 Metamyelocytes 3.0 Myelocytes 1.0 Nucleated RBCs # Platelet Estimate Normal Sodium Potassium Chloride Carbon Dioxide Anion Gap BUN Creatinine GFR Calculation Glucose POC Glucose 109 Calculated Osmolal ity Calcium Phosphorus Magnesium Ferritin 306 H Total Bilirubin AST ALT Alkaline Phosphata se C-Reactive Protein 1.8 NT-Pro-B Natriuret Pep 146 H Total Protein Albumin Globulin 04/20/21 04/20/21 04/20/21 20:06 16:56 16:22 WBC RBC Hgb Hct MCV MCH MCHC RDW Plt Count MPV Neut % (Auto) Lymph % (Auto) [place] % (Auto) Eos % (Auto) Baso % (Auto) Neut # (Auto) Lymph # (Auto) [place] # (Auto) Eos # (Auto) Baso # (Auto) Nucleated RBC % (a uto) Total Counted Atypical Lymphs % Absolute Neutrophi ls Segmented Neutroph ils Abs Segm Neuts (Ma n) Band Neutrophils Abs Band Neuts (Ma n) Absolute Lymphocyt es Lymphocytes ([place]) Monocytes (Manual) Absolute Monocytes Eosinophils (Man[place] l) Absolute Eosinophi ls Basophils (Manual) Absolute Basophils Metamyelocytes Myelocytes Nucleated RBCs # Platelet Estimate Sodium 142 Potassium 4.0 Chloride 106 Carbon Dioxide 25 Anion Gap 15.0 BUN 23 H Creatinine 1.0 H GFR Calculation 57.1 L Glucose 138 H POC Glucose 123 H 136 H Calculated Osmolal ity 300 H Calcium 8.0 L Phosphorus 3.0 Magnesium 2.1 Ferritin Total Bilirubin 0.9 AST 102 H ALT 171 H Alkaline Phosphata se 50 C-Reactive Protein NT-Pro-B Natriuret Pep Total Protein 5.5 L Albumin 2.9 L Globulin 2.6 04/20/21 16:22 WBC 8.0 RBC 4.24 Hgb 12.6 Hct 38.3 MCV 90.3 MCH 29.7 MCHC 32.9 RDW 13.2 Plt Count 301 MPV 10.0 Neut % (Auto) 54.0 Lymph % (Auto) 29.4 [place] % (Auto) 9.1 Eos % (Auto) 2.0 Baso % (Auto) 0.4 Neut # (Auto) 4.34 Lymph # (Auto) 2.4 [place] # (Auto) 0.7 Eos # (Auto) 0.2 Baso # (Auto) 0.0 Nucleated RBC % (a uto) 0 Total Counted Atypical Lymphs % Absolute Neutrophi ls Segmented Neutroph ils Abs Segm Neuts (Ma n) Band Neutrophils Abs Band Neuts (Ma n) Absolute Lymphocyt es Lymphocytes (Man[place] l) Monocytes (Manual) Absolute Monocytes Eosinophils (Man[place] l) Absolute Eosinophi ls Basophils (Manual) Absolute Basophils Metamyelocytes Myelocytes Nucleated RBCs # 0.0 Platelet Estimate Sodium Potassium Chloride Carbon Dioxide Anion Gap BUN Creatinine GFR Calculation Glucose POC Glucose Calculated Osmolal ity Calcium Phosphorus Magnesium Ferritin Total Bilirubin AST ALT Alkaline Phosphata se C-Reactive Protein NT-Pro-B Natriuret Pep Total Protein Albumin Globulin Vitals: Last Vital Signs Temp 97.8 F 04/21/21 11:39 Pulse 86 04/21/21 11:39 Resp 14 04/21/21 11:39 BP 111/72 04/21/21 11:39 Pulse Ox 96 04/21/21 11:39 Discharge Plan Discharge Patient Disposition: Home Condition: Stable Prescriptions: Continued levothyroxine 175 mcg capsule 175 mcg PO DAILY RF: 0 tizanidine 2 mg capsule 2 mg PO BID PRN (Reason: MUSCLE SPASMS) RF: 0 pantoprazole [Protonix] 40 mg tablet,delayed release (DR/EC) 40 mg PO DAILY RF: 0 albuterol sulfate [ProAir HFA] 90 mcg/actuation HFA aerosol inhaler 2 puff inhalation QID RF: 0 ondansetron HCl 4 mg tablet 4 mg PO Q8H PRN (Reason: nausea and vomiting) Qty: 30 RF: 1 miscellaneous medical supply Misc See Rx Instructions miscellaneous .COMPLEX 30 Days Qty: 1 RF: 0 Vitamin C 250 mg Tablet 250 mg PO DAILY RF: 0 zinc 50 mg Tablet 50 mg PO DAILY RF: 0 Vitamin D3 25 mcg (1,000 unit) Tablet,Chewable 25 mcg PO DAILY RF: 0 Discontinued azithromycin 250 mg tablet See Rx Instructions .ROUTE .COMPLEX RF: 0 Discharge Orders: Discharge Order (Routine); Ordered 04/21/21 Ordered By: Xin Perdomo Other Ambulatory Orders: DME: Oxygen (Order) Location: None Selected Ordered By: Xin Perdomo Referrals: Janny Bright [Non-Staff] - 04/27/21 9:45 am Discharge Diet: Advance as tolerated Discharge Activity: Resume usual activity and Increase activity as tolerated Patient Instructions: Viral Pneumonia (DC), Acute Kidney Injury (DC), Thrombocytopenia (DC), Opioid Safety Discharge Attestations Time Spent in Discharge Care*: less than 30 min Quality Metrics Clinical Quality Measures During this hospital stay, did patient experience: None Coding Level of Care Code Acute Chg FW DC note Diagnoses Acute respiratory failure with hypoxia J96.01 Pneumonia due to 2019 novel coronavirus U07.1; J12.82 Thrombocytopenia D69.6 Leukopenia D72.819 Rhabdomyolysis due to COVID-19 U07.1; M62.82 Acquired hypothyroidism E03.9 COVID-19 U07.1
== END 2021-04-21 14:13 | disposition home or self-care (01) | DRG 177 ==
LOC: ER 22:36 → ICU 04-15 00:02 → MEDSURG 04-18 18:17
PROVIDERS: Internal Medicine; Physician Assistant; Admitting Provider Hospitalist; Emergency Provider Family Medicine; Visit Provider Internal Medicine
DX: U07.1 COVID-19 (principal); J12.82 Pneumonia due to coronavirus disease 2019; J96.01 Acute respiratory failure with hypoxia; J15.9 Unspecified bacterial pneumonia; M62.82 Rhabdomyolysis; N17.9 Acute kidney failure, unspecified; I24.8 Other forms of acute ischemic heart disease; E87.2 Acidosis; A08.39 Other viral enteritis; E03.9 Hypothyroidism, unspecified; Z85.3 Personal history of malignant neoplasm of breast; D69.6 Thrombocytopenia, unspecified; E86.0 Dehydration; K21.9 Gastro-esophageal reflux disease without esophagitis; Z79.51 Long term (current) use of inhaled steroids; R73.9 Hyperglycemia, unspecified; T38.0X5A Adverse effect of glucocorticoids and synthetic analogues, initial encounter
CPT/HCPCS: 36415; 36416; 36600; 71045; 71275; 80048; 80053; 80202; 81001; 82550; 82728; 82803; 82962; 83036; 83605; 83615; 83735; 83880; 84100; 84145; 84484; 85007; 85025; 85378; 85384; 85610; 85651; 85730; 86140; 86141; 86403; 87040; 87205; 87493; 87506; 87641; 87804; 93005; 93306; 94640; 94664; 96361; 96365; 96372; 96375; 99291; J0456; J0696; J1100; J1650; J1815; J1940; J3262; J3370; J3535; J7030; J7050; Q9967